=== PATIENT | female | born 1960 | race Caucasian/White ===

== ENCOUNTER → 2016-03-24 | Outpatient (CLI) | payer MEDICARE ==
[~2016-03-24] MED LIST: ALBUTEROL2 PUFFS/17 IN; AMLODIPINE BESY10 M1 PO; ATENOLOL25 MG PO; AZOR 5 MG-40 MG1 TAB PO; CARVEDILOL3.125 M1 PO; CARVEDILOL6.25 M1 PO; CARVEDILOL6.25 MG PO; CLONAZEPAM0.5 M1 PO; COREG6.25 MG PO; FAMOTIDINE 20MG20 MG PO; FLEXERIL10 M1 PO; GABAPENTIN 600600 MG PO; GABAPENTIN800 MG PO; HYDROCODONE1 TABLET PO; LISINOPRIL40 MG PO; LORTAB 10/5001 TAB PO; LORTAB 5/500 501 TAB PO; MAXZIDE 25 MG-31 TA1 PO; MOTRIN600 MG PO; NEXIUM40 MG PO; OXYCODONE HCL10 M1 PO; PHENERGAN25 M3 PO; PREDNISONE 5MG.5 MG PO; ROBAXIN-750750 MG PO; SAVELLA12.5 MG PO; TESSALON PERLE100 MG PO; TRAMADOL 50MG T50 MG PO; VICODIN 5/500 T1 TAB PO; VOLTAREN75 MG PO; XANAX 1MG TABLET1 MG PO; ZANTAC 150150 MG PO; ZITHROMAX TRI-500 MG PO; ZITHROMAX Z PA250 MG PO; ZOFRAN4 MG PO
[2016-03-24 15:06] LABS: AMPHETAMINES/METAMPHETAMINES NEGATIVE ng/mL (<1000)
== END ==
LOC: LAB 14:04
PROVIDERS: Emergency Medicine
DX: Z79.899 Other long term (current) drug therapy (principal)

== ENCOUNTER → 2016-04-21 | Outpatient (CLI) | payer MEDICARE ==
[2016-04-21 14:59] LABS: HEMOGLOBIN 15.7 g/dL (12.2-16.2); LYMPH # 2.2 K/mm3 (0.7-4.5); LYMPH % 21.7 % (10-50.0)
[2016-04-21 15:26] LABS: AMPHETAMINES/METAMPHETAMINES NEGATIVE ng/mL (<1000)
[2016-04-21 15:50] LABS: BUN 26 mg/dL (7-18)
[2016-04-21 16:02] LABS: GFR (ESTIMATED) 58 ML/MIN (59-)
== END ==
LOC: LAB 14:05
PROVIDERS: Emergency Medicine
DX: Z79.899 Other long term (current) drug therapy (principal); I10 Essential (primary) hypertension

== ENCOUNTER → 2016-11-07 | Outpatient (CLI) | payer MEDICARE ==
[2016-11-07 14:32] LABS: AMPHETAMINES/METAMPHETAMINES NEGATIVE ng/mL (<1000)
== END ==
LOC: LAB 14:03
PROVIDERS: Emergency Medicine
DX: Z79.899 Other long term (current) drug therapy (principal)

== ENCOUNTER → 2017-01-06 | Outpatient (CLI) | payer MEDICARE ==
[2017-01-06 13:45] LABS: AMPHETAMINES/METAMPHETAMINES NEGATIVE ng/mL (<1000)
== END ==
LOC: LAB 12:46
PROVIDERS: Emergency Medicine
DX: Z79.899 Other long term (current) drug therapy (principal)

== ENCOUNTER 2017-01-23 20:54 | Observation (INO) | payer MEDICARE, MEDICAID ==
[~2017-01-23] VITALS: Ht 170.2 cm; Wt 90.8 kg
[2017-01-23 20:57] VITALS: BP 203/127
--- NOTE | 2017-01-23 21:13 | Emergency Room Report ---
History of Present Illness Time Seen by [id number] Presenting Problem in Triage Pt arrived:Walked Presenting Problem:PRESENTS WITH CHEST PAIN, N/V, PT STATES SHE IS "JERKING", PT IS ANXIOUS, HYPERVENTILATING Onset of symptoms date/time:01/23/1706/06/1899 or onset unknown for: Treatment Prior to Arrival: [employer] TESTING Provided by: Sepsis Risk Assessment: Temp: 98.3 B/P: 203/127 MAP: 152 Pulse: 97 Resp: 32 Recent fever? N Clinical Suspician of Infection? N Mental Status: 1 - Regular (Normal Baseline) Sepsis Risk:Possible Sepsis Risk Have you (or family members/close friends) recently traveled outside the [place]? N If Yes, where/when: Have you had exposure to infectious disease within the past month? N TB? Other? Specify: Source patient, RN notes reviewed, family, old records Exam Limitations no limitations Comment pt with upper abd pain with nausea and vomiting with progression to ant chest pain with hx of heart disease - she also has jerking and elevated bp- she reports being compliant with meds - Cardiac Chest Pain Chest pain indicative of cardiac No Timing/Duration this evening Severity moderate ALLERGIES Coded Allergies: buprenorphine (From Suboxone) (Intermediate, I-RASH 02/19/15) buspirone (From BuSpar) (Intermediate, I-RASH 02/19/15) cyclobenzaprine (From Flexeril) (Intermediate, I-RASH 02/19/15) naloxone (From Suboxone) (Intermediate, I-RASH 02/19/15) naproxen (From Naprosyn) (Intermediate, I-RASH 02/19/15) pregabalin (From Lyrica) (Intermediate, I-RASH 02/19/15) Home Medications Active Scripts Prednisone (Prednisone 5MG) 5 MG PO DIRECTED #39 TAB Prov: 01/06/16 Reported Medications Alprazolam (Xanax 1MG) 1 MG PO TID #90 OXYCODONE HCL (Oxycodone HCl) 10 MG PO QID #120 Amlodipine Besylate 10 MG PO BID #30 Carvedilol 6.25 MG PO DAILY #60 Gabapentin (Gabapentin 600MG) 300 MG PO Q8 #90 TAB Lisinopril (Lisinopril 40MG) 40 MG PO DAILY #30 History Medical History General CAD? Yes Angina: Yes [place]: Yes Hypertension? Yes Hyperlipidemia? No CHF? Yes DVT? No PE? No COPD? No Asthma? No Anemia? Yes GERD? No Gastric ulcers? No GI Bleed? No Hernia? No Thyroid Problems? No Hypothyroidism? No CVA? Yes Seizures? Yes Diabetes? No Renal Insuffiency? No End Stage Renal Disease? No UTI? No Stones? No GB Disease: No Nephritic Syndrome? No Asplenia? No Hepatitis? No Sickle Cell Disease? No Arthritis? Yes Migraines? No Cataracts? No Glaucoma? No MRSA? No HIV? No TB? No Anxiety? Yes Depression? No Cancer? 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 Respiratory see HPI, denies cough, shortness of breath, denies wheezing Cardiovascular chest pain, denies palpitations, denies syncope, other Gastrointestinal see HPI, abdominal pain, denies diarrhea, nausea, vomiting Genitourinary denies: dysuria, frequency, hesitancy, hematuria. Musculoskeletal see HPI, denies back pain, denies joint pain, denies joint swelling, denies neck pain, other Skin denies rash Psychiatric/Neurological denies headache, denies seizure Physical Exam Vital Signs Vital Signs Date Time Temp Pulse Resp B/P Pulse O2 O2 Flow FiO2 Ox Delivery Rate 01/23 2210 87 20 160/112 97 01/23 2130 89 22 160/129 99 01/23 2057 98.3 97 32 203/127 95 - WBC >12,000 or <4,000 or 10% bands? 2 or more SIRS Criteria Met? B/P:152/102 MAP:152 Creatinine >2.0? UA output<0.5ml/kg/hr for 2 hrs? Platelet count >100,000? Lactate >2.0mmol/1? INR >1.2 or PTT > than 60 sec? Evidence of Organ Dysfunction? Provider documented clinical suspician of infection? N Sepsis Criteria Count: 2 Sepsis Risk: Possible Sepsis Risk General Appearance no apparent distress Eye Exam - bilateral eye PERRL, bilateral eye EOMI Ear, Nose, Throat normal ENT inspection Neck supple Respiratory Status No: respiratory distress. Lung Sounds bilateral: lungs clear. 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 No Results/Orders Laboratory Tests 01/23/17 2100: Sodium 137, Potassium 3.4 L, Chloride 101, Carbon Dioxide 26, BUN 14, Creatinine 0.8, Estimated Creat Clear 97, Estimated GFR (MDRD) 74, Glucose 126 H, Calcium 9.4, Total Bilirubin 0.3, AST 16, ALT 21, Alkaline Phosphatase 109, Creatine Kinase 65, CK-MB (CK-2) Rel Index 0.9, CK and CKMB Interp 0.6, Troponin I < 0.02, Total Protein 8.4 H, Albumin 4.0, Globulin 4.4 H, Albumin/Globulin Ratio 0.9 L, Amylase 60, Lipase 92, WBC 11.9 H, RBC 4.98, Hgb 14.6, Hct 44.2, MCV 88.7, RDW 13.0, Plt Count 321, MPV 7.6, Gran % 79.7, Gran # 9.5 H, Lymphocytes % 14.5, Monocytes % 3.3, Eosinophils % 2.1, Basophils % 0.5, Lymphocytes # 1.7, Monocytes # 0.4, Eosinophils # 0.3, Basophils # 0.1, PUBS MCHC 33.0, MCH 29.3 Current Medication Orders Sig/Edilberto Start time Last Medication Dose Route Stop Time Status Admin Lorazepam 1 MG ONCE ONE 11/03 2300 DC 01/23 IV 01/23 230 2256 Lorazepam 0 .STK-MED ONE 01/23 225 DC .ROUTE Diphenhydramine HCl 25 MG ONCE ONE 01/23 2245 DC 01/23 IV 01/23 2246 223 Diphenhydramine HCl 0 .STK-MED ONE 01/23 2230 DC .ROUTE Famotidine 20 MG ONCE ONE 01/23 221 DC 01/23 IV 01/24 2216 221 Metoclopramide HCl 10 MG ONCE ONE 01/23 2215 DC 01/23 IVP 01/24 2216 221 Ondansetron HCl 4 MG ONCE ONE 01/23 221 DC 01/23 IV 01/24 2216 221 Sodium Chloride 8 ML ONCE ONE 01/23 2215 DC 01/23 IV 01/24 2216 221 Famotidine 0 .STK-MED ONE 01/23 2213 DC IV Metoclopramide HCl 0 .STK-MED ONE 01/23 2213 DC .ROUTE Metoclopramide HCl 0 .STK-MED ONE 01/24 2212 DC .ROUTE Ondansetron HCl 0 .STK-MED ONE 01/24 2212 DC .ROUTE Sodium Chloride 1,000 ML .STK-MED ONE 01/23 2117 DC IV Sodium Chloride 25 ML .STK-MED ONE 01/24 2116 DC IV Promethazine HCl 12.5 MG ONCE ONE 01/23 2115 DC 01/23 IV 01/23 Promethazine HCl 0 .STK-MED ONE 01/23 2115 DC .ROUTE Sodium Chloride 10 ML PRN PRN 01/23 2115 AC IV 01/24 2109 Sodium Chloride 1,000 ML .Q4H 01/23 2115 AC 01/23 IV 01/24 Sodium Chloride 10 ML PRN PRN 01/23 2115 AC IV 01/24 2110 Sodium Chloride 25 ML ONCE ONE 01/23 2115 DC 01/23 IV 01/23 Orders Procedure Date/time Status DIET-NOTHING BY MOUTH 01/24 B Active Decision to admit 01/[address] ABD & PELVIS W/O CONTRAST 01/24 2116 Active ELECTROCARDIOGRAM REQUEST 01/[address] SCAN REQ 01/23 2110 Active IV SALINE LOCK 01/23 2110 Active LIPASE 01/23 2110 Complete COMPLETE METABOLIC PANEL 01/23 2110 Complete CBC WITH AUTO DIFF 01/23 2110 Complete CARDIAC ENZYMES 01/23 2110 Complete AMYLASE 01/23 2110 Complete CM/EKG CM/round boner Rhythm Sinus Tachycardia EKG non-spec. ST/Twave chgs XRAY/CT/US XRAY/CT/US 1 XRAY chest XR interpretation by reviewed by me Xray Results normal/NAD XRAY/CT/US 2 CT abdomen, pelvis CT interpretation by discussed w/radiologist Time results known: 2349 CT Results normal/NAD JAMEL Score for N-Stemi/Angina JAMEL N-STEMI SCORE JAMEL N-STEMI SCORE Response Value Age of patient Less than 65 yrs 0 Number of risk factors for CAD Presence of 3 or more 1 Prior coronary artery stenosis (seen in angiography) Less than 50% 0 ST-Segment deviation on ECG (>1 min) Absent 0 Prior aspirin intake No ASA in the last 7 days 0 Severe anginal chest pain 2 or more episodes/24hr 1 Elevated cardiac markers(CK-MB or troponin) Absent 0 Total 2 Departure Departure Time of Disposition 2318 Disposition Still a Patient Clinical Impression Primary Impression: Chest pain Qualifiers: Chest pain type: precordial pain Qualified Code: R07.2 - Precordial pain Secondary Impressions: Abdominal pain Qualifiers: Abdominal location: epigastric Qualified Code: R10.13 - Epigastric pain Hypertensive emergency Condition STABLE Referrals Steven GREEN,Randall Gutierrez (Family) ED Critical Care Critical Care No at [id number]
[2017-01-23 21:22] LABS: HEMOGLOBIN 14.6 g/dL (12.2-16.2); LYMPH # 1.7 K/mm3 (0.7-4.5); LYMPH % 14.5 % (10-50.0)
[2017-01-23 21:43] LABS: BUN 14 mg/dL (7-18)
--- NOTE | 2017-01-23 21:53 | RADIOLOGY REPORT PS360 ---
CHEST-AP VIEW ONLY HISTORY: cough ORDERING PHYSICIAN: Alysa Harris MD PATIENT AGE: 56 years COMPARISON: 10/01/2014 FINDINGS: The cardiomediastinal silhouette and pulmonary vascularity are within normal limits. The lungs are clear without infiltrates, suspicious nodules, or pleural effusions. No acute bony abnormalities. Calcified granuloma right lower lobe IMPRESSION: No change with no acute finding
--- OUTSIDE RECORDS SUMMARY | 2017-01-23 22:37 | External Medical Summary Rpt | CCD ---
Author Author , TINA WILDER Address Unknown Phone [email or web address] Care Team Providers Care Outpatient Therapist Name Role Phone MARITZA CHAYA, Unavailable Unavailable MARITZA CHAYA [facility] Unavailable Unavailable AMBULANCE, [facility] POPPY TO, POPPY Unavailable Unavailable TO NICOLE PHIBONNIE Unavailable Unavailable [facility] HAGENSCHUMER MARCELLA, Unavailable Unavailable HAGENSCHUMER MARCELLA [facility] Un[facility] Un[facility], [facility], Unavailable Unavailable [facility] Unavailable Unavailable [facility], [facility] Unavailable [facility] FELIX JR DWI, FELIX Unavailable Unavailable JR DWI [facility], Unavailable Unavailable [facility] Unavailable Unavailable HOSPITALIST, [facility] KHUSHI DEZ, KHUSHI DEZ Unavailable Unavailable TAMIKO MAT, Unavailable Unavailable TAMIKO MAT [facility] Unavailable Unavailable MEDIC, [facility] # Unavailable Unavailable 1, [facility] # 1 [facility], Unavailable Unavailable [facility] DAELINE DEJESUS, Unavailable Unavailable ADELINE TRIPLETT, MARIZA TRIPLETT Unavailable Unavailable Luis Devlin Unavailable Unavailable ANNE MARIE GREEN, Luis Devlin III, MD Purpose Continuity of Care Document - 12-08-2011 through 2016 Problems Code Diagnosis DOS Provider Status E663 OVERWEIGHT 12-08-2016 [facility] [id number] OTHER 12-08-2016 [facility] CHRONIC PHYSICIANS PAIN GROUP I10 ESSENTIAL 12-08-2016 [facility] PRIMARY PHYSICIANS HYPERTENSIO GROUP N 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 [facility] RAL DISC PHYSICIANS D/O GROUP W/RADICULOP ATHY LUMB RGN [id number] OTHER LONG 12-08-2016 [facility] TERM PHYSICIANS CURRENT GROUP DRUG THERAPY 1749 MALIGNANT 05-29-2014 [facility] NEOPLASM OF PHYSICIANS BREAST GROUP UNSPECIFIED SITE 3384 CHRONIC 05-29-2014 [facility] PAIN PHYSICIANS SYNDROME GROUP 05809 DISPLCMT 04-03-2014 [facility] 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 [place] CORONARY ARTERY V4582 POSTSURG 03-07-2014 [facility] TRANSLUMINA L COR ANGPLSTY STS V5842 AFTERCARE 03-07-2014 [facility] SURGERY FOR NEOPLASM V860 ESTROGEN 03-07-2014 [facility] POSITIVE STATUS 24606 UNSPECIFIED 12-22-2013 [facility] ABNORMAL PHYSICIANS MAMMOGRAM GROUP 43937 MAMMOGRAPHI 12-14-2013 [facility] MICROCALCIF IMAGING ASS ICATION 10798 OTHER 11-10-2013 MARITZA ABNORMAL CHAYA FINDING RADIOLOGICA L EXAM BREAST V7612 OTHER 11-02-2013 [facility]CREENING [facility] MAMMOGRAM INC 4111 INTERMEDIAT 10-20-2013 TAMIKO E CORONARY MAT SYNDROME 65207 CHEST PAIN 10-20-2013 [place] UNSPECIFIED HOSPITALIST 4139 OTHER AND 10-18-2013 [facility] PHI UNSPECIFIED ANGINA PECTORIS 93440 PAIN IN 10-18-2013 [facility] REGION 56450 SHORTNESS 10-18-2013 HAGENSCHNEI OF BREATH BRIANA MARCELLA 6929 CONTACT 10-17-2013 [facility] DERMATITIS& MEM [facility]OS[facility] OTHER INC ECZEMA DUE UNSPEC CAUSE 7242 LUMBAGO 10-17-2013 MARIZA TRIPLETT V1254 PERSONAL HX 10-17-2013 [facility] TIA [facility] CI [facility] W/O INC RESIDUAL DEFICITS V148 PERSONAL 10-17-2013 [facility] HISTORY [facility] ALLERGY OTH INC SPEC MEDICINAL AGTS 12494 ESOPHAGEAL 09-01-2013 POPPY TO REFLUX 19079 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 72788 OTHER 08-10-2013 [facility] CHRON[facility] PAIN MEDIC 46194 UNSPECIFIED 08-10-2013 [facility] ARTHROPATHY MEDIC SITE UNSPECIFIED 7244 THORACIC/BIBI 08-10-2013 [facility] MBOSACRAL REGIONAL NEURITIS/RA MEDIC DICULITIS UNSPEC 7262 OTHER 08-10-2013 [facility] AFFECTIONS REGIONAL OF SHOULDER MEDIC REGION NEC 07189 SPASM OF 08-10-2013 [facility] MUSCLE REGIONAL MEDIC 8470 NECK SPRAIN 08-10-2013 [facility] AND STRAIN REGIONAL MEDIC 8472 LUMBAR 08-10-2013 [facility] SPRAIN AND REGIONAL STRAIN MEDIC 7231 CERVICALGIA 07-10-2013 ADELINE KENNEY ANJELICA V1582 PERS HX 07-10-2013 PHI TOBACCO USE [facility] 4659 ACUTE URIS 07-02-2013 KHUSHI DEZ OF UNSPECIFIED SITE 4660 ACUTE 07-02-2013 FELIX JR BRONCHITIS DWI 490 BRONCHITIS 07-02-2013 KHUSHI DEZ NOT SPECIFIED ACUTE OR CHRONIC 496 CHRONIC 07-02-2013 MARITZA [address] CHAYA OBSTRUCTION NEC 7862 COUGH 07-02-2013 MARITZA CHAYA 40561 OTHER CHEST 07-02-2013 KHUSHI DEZ PAIN 67658 OSTEOARTHRO 04-20-2013 POPPY Mazariegos UNSPEC WHETHER GEN/LOC UNSPEC SITE V720 EXAMINATION 02-03-2013 ISI OF EYES [facility] 379.91 379.91 PAIN 09-05-2012 Phi IN OR [facility] 401.9 401.9 09-05-2012 Phi [facility] V58.69 V58.69 OTH 09-05-2012 Phi [facility] ENT USE [facility] Z79.899 OTHER USP (CURRENT) DRUG THERAPY Allergies, Adverse Reactions, Alerts Type Allergy to substance Drug Allergy Adverse Reaction to Substance Substance Reaction Severity LYRICCA Unknown Unknown Cyclobenzaprine Unknown Unknown Duloxetine Unknown Unknown Medications Na ND Rx Da Fi Fi Am Da Di Ph RX Ph St me C No te ll ll ou ys ag ar # ys at rm s nt no ma ic us Or Da si cy ia de te s n re d TR 57 10 10 1 60 15 TO 66 GE Ac AM 66 -0 -1 0. TA 90 HR ti AD 40 3- 8- 00 L 69 IN ve OL 37 20 20 0 CA 9 G 71 13 13 RE SA HC 8 MU L PH EL 50 AR W MA MG CY # TA 1 BL ET EY 00 06 0 No E 90 -1 WA 45 6- Lo SH 37 20 ng 72 13 er SO 0 BIBI Ac TI ti ON ve FU 17 06 0 No L- 47 -1 GL 80 6- Lo O 40 20 ng 1 40 13 er MG 1 Ac OP ti TH ve ST RI PS TE 24 06 0 No TR 20 -1 AC 80 6- Lo AI 92 20 ng NE 06 13 er 4 0. Ac 5% ti ve EY E DR OP S ME 51 06 0 No TO 07 -1 CO 90 6- Lo OL 80 20 ng OL 12 13 er 0 TA Ac RT ti RA ve TE 50 MG TA B Vital Signs 09-05-2012 14:45 Name Value Interpretat Reference Comment ion Range BP 98 mm[Hg] Diastolic BP Systolic 161 mm[Hg] Heart 78 /min Rate/Pulse O2% 98 % Respiratory 20 /min Rate 09-05-2012 13:44 Name Value Interpretat Reference Comment ion Range Body 98.2 [degF] Temperature BP 114 mm[Hg] Diastolic BP Systolic 163 mm[Hg] Heart 74 /min Rate/Pulse O2% 98 % Respiratory 14 /min Rate Results Labs Lab Lab Date Result Refere Interp Status Commen Order Detail nces retati t Range on Urine 9-analyte drugs of abuse screening (01-06-2017 11:00) Comment: Positive urine drug screen samples are stored for 7 days. Comment: Contact the Lab if confirmation of positives is needed. Cocaine = <300 complet 017 NEGATIV ed measure 11:00 E ng/g ment (mass/v olume) Serum = 200 complet or 017 NEGATIV ng/mL ed plasma 11:00 E ng/mL benzodi azepine s measure m Urine = <200 complet barbitu 017 NEGATIV ed rates 11:00 E ng/mL measure ment by screen Urine NEGATIV <1000 complet ampheta 017 E ed mine 11:00 NEGATIV screeni E L ng test ng/mL 11-hydr POSITIV <50 complet oxy 017 E ed delta-9 11:00 POSITIV E L tetrahy ng/mL drocann abinol Comment: This is an UNCONFIRMED result. This result is for medical Comment: purposes and/or treatment only. Phencyc = <25 complet lidine 017 NEGATIV ed measure 11:00 E ng/mL ment (mass/v olume) Opiates = <300 complet 017 POSITIV ed measure 11:00 E ng/mL ment (mass/v olume) Comment: This is an UNCONFIRMED result. This result is for medical Comment: purposes and/or treatment only. Methado 01-06-2 = <300 complet ne 017 NEGATIV ed measure 11:00 E ng/mL ment (mass/v olume) CKMB wCPK (11-22-2012 13:56) CKMB 0.5 0.01 - complet 013 ng/ml 3.60 ed 13:56 RELATIV complet 013 E INDEX ed 13:56 NOT AVAILAB LE ON PATIENT S W/EPHRAIM L CKMB AMI > complet 013 5.0 > ed 13:56 4.0 YOUNG complet 013 ZONE > ed 13:56 5.0 </= 4.0 NON AMI complet 013 </= ed 13:56 5.0 NA MMB complet 013 (ng/ml) ed 13:56 Relativ e Index CKMB NOT 0 - complet INDEX 013 APPL % 4.10 ed 13:56 CK 34 U/L 21 - complet 013 215 ed 13:56 [id number] (11-22-2012 13:56) > 0.06 complet 013 ng/ml ed 13:56 (POSITI VE) 0 - complet 013 0.06 ed 13:56 ng/ml (NEGATI VE) INITIAL complet 013 ed 13:56 TROPONI N? __NO_ 3.1448. MDA. . .M TROPONI 0.00 0.00 - complet N-I 013 ng/ml 0.06 ed 13:56 [id number] (11-22-2012 07:36) > 0.06 complet 013 ng/ml ed 07:36 (POSITI VE) 0 - complet 013 0.06 ed 07:36 ng/ml (NEGATI VE) INITIAL complet 013 ed 07:36 TROPONI N? __NO_ 3.0813. MDA. . .M TROPONI 0.01 0.00 - complet N-I 013 ng/ml 0.06 ed 07:36 [id number] (11-22-2012 07:36) are complet 013 recomme ed 07:36 nded below the age of 75. For patient s 75 years and failure complet 013 also. ed 07:36 For use as a screeni ng test, values less than 131pg/m l causes complet 013 of ed 07:36 increas ed NT-proB CERTIFIED FLIGHT INSTRUCTOR not related to congest jerica heart in complet 013 general ed 07:36 have somewha t higher values than females . There are other failure complet 013 with ed 07:36 increas ing age and advanci ng renal insuffi ciency; males NT-proB complet 013 CERTIFIED FLIGHT INSTRUCTOR can ed 07:36 show substan tial increas es in patient s without heart referen complet 013 ce ed 07:36 ranges that would account for all circums tances. heart complet 013 disease ed 07:36 and for this reason it is difficu lt to assign strict This complet 013 ed 07:36 analyte has conside rable variabi lity in patient s without known NOTIFY YES complet QA 013 ed 07:36 NT-proB 143 0 - 131 Above complet CERTIFIED FLIGHT INSTRUCTOR 013 pg/ml high ed 07:36 normal older, complet 013 a ed 07:36 cutoff of 450pg/n l is recomme nded. * CKMB wCPK (11-22-2012 01:40) RELATIV complet 013 E INDEX ed 01:40 NOT AVAILAB LE ON PATIENT S W/EPHRAIM L CKMB AMI > complet 013 5.0 > ed 01:40 4.0 YOUNG complet 013 ZONE > ed 01:40 5.0 </= 4.0 NON AMI complet 013 </= ed 01:40 5.0 NA MMB complet 013 (ng/ml) ed 01:40 Relativ e Index CKMB NOT 0 - complet INDEX 013 APPL % 4.10 ed 01:40 CK 30 U/L 21 - complet 013 215 ed 01:40 CKMB 0.3 0.01 - complet 013 ng/ml 3.60 ed 01:40 [id number] (11-22-2012 01:40) 02- > 0.06 complet 013 ng/ml ed 01:40 (POSITI VE) 0 - complet 013 0.06 ed 01:40 ng/ml (NEGATI VE) RD BCK P.Hamil complet VRFY: 013 ton/090 ed 01:40 213/021 7/temi INITIAL complet 013 ed 01:40 TROPONI N? __NO_ 3.0217. [facility]. . .M TROPONI 0.01 0.00 - complet N-I 013 ng/ml 0.06 ed 01:40 CKMB wCPK (11-21-2012 20:05) RELATIV complet 013 E INDEX ed 20:05 NOT AVAILAB LE ON PATIENT S W/EPHRAIM L CKMB AMI > complet 013 5.0 > ed 20:05 4.0 YOUNG complet 013 ZONE > ed 20:05 5.0 </= 4.0 NON AMI complet 013 </= ed 20:05 5.0 NA MMB complet 013 (ng/ml) ed 20:05 Relativ e Index CKMB NOT 0 - complet INDEX 013 APPL % 4.10 ed 20:05 CK 29 U/L 21 - complet 013 215 ed 20:05 CKMB 0.9 0.01 - complet 013 ng/ml 3.60 ed 20:05 CKMB wCPK (11-20-2012 22:02) RELATIV complet 013 E INDEX ed 22:02 NOT AVAILAB LE ON PATIENT S W/EPHRAIM L CKMB AMI > complet 013 5.0 > ed 22:02 4.0 YOUNG complet 013 ZONE > ed 22:02 5.0 </= 4.0 NON AMI complet 013 </= ed 22:02 5.0 NA MMB complet 013 (ng/ml) ed 22:02 Relativ e Index CKMB NOT 0 - complet INDEX 013 APPL % 4.10 ed 22:02 CK 26 U/L 21 - complet 013 215 ed 22:02 CKMB 0.4 0.01 - complet 013 ng/ml 3.60 ed 22:02 [id number] (11-20-2012 22:02) > 0.06 complet 013 ng/ml ed 22:02 (POSITI VE) 0 - complet 013 0.06 ed 22:02 ng/ml (NEGATI VE) RD BCK M.Wrigh complet VRFY: 013 ed 22:02 05/2241/ temi INITIAL complet 013 ed 22:02 TROPONI N? __NO_ . [facility]. . .M TROPONI 0.00 0.00 - complet N-I 013 ng/ml 0.06 ed 22:02 CKMB wCPK (11-20-2012 16:00) RELATIV complet 013 E INDEX ed 16:00 NOT AVAILAB LE ON PATIENT S W/EPHRAIM L CKMB AMI > complet 013 5.0 > ed 16:00 4.0 YOUNG complet 013 ZONE > ed 16:00 5.0 </= 4.0 NON AMI complet 013 </= ed 16:00 5.0 NA MMB complet 013 (ng/ml) ed 16:00 Relativ e Index CKMB NOT 0 - complet INDEX 013 APPL % 4.10 ed 16:00 CK 33 U/L 21 - complet 013 215 ed 16:00 CKMB 0.2 0.01 - complet 013 ng/ml 3.60 ed 16:00 [id number] (11-20-2012 16:00) > 0.06 complet 013 ng/ml ed 16:00 (POSITI VE) 0 - complet 013 0.06 ed 16:00 ng/ml (NEGATI VE) RD BCK R complet VRFY: 013 WORKMAN ed 16:00 1636 11/20/12 INITIAL complet 013 ed 16:00 TROPONI N? _YES_ 3.1637. DRArslan. TROPONI 0.00 0.00 - complet N-I 013 ng/ml 0.06 ed 16:00 [id number] (11-20-2012 16:00) POTASSI 3.5 3.50 - complet UM 013 mmol/L 5.10 ed 16:00 SODIUM 136 136 - complet 013 mmol/L 145 ed 16:00 ALT 39 IU/L 12 - 78 complet (SGPT) 013 ed 16:00 AST 21 IU/L 15 - 37 complet (SGOT) 013 ed 16:00 TOTAL 0.3 0.20 - complet MARCO A 013 mg/dl 1.0 ed 16:00 CALCIUM 8.9 8.50 - complet 013 mg/dl 10.10 ed 16:00 GFR 60 complet 013 ml/min ed 16:00 AGE 08 52 yrs complet 013 ed 16:00 CREATIN 1.0 0.60 - complet INE 013 mg/dl 1.30 ed 16:00 BUN 15 7 - 18 complet 013 mg/dl ed 16:00 GLUCOSE 93 70 - complet 013 mg/dl 120 ed 16:00 ANION 10 5 - 15 complet GAP 013 mmol/L ed 16:00 TOTAL 30 21 - 32 complet CO2 013 mmol/L ed 16:00 CHLORID 100 98 - complet E 013 mmol/L 107 ed 16:00 *GFR complet 013 only ed 16:00 applies to adults over the age 18. If complet 013 patient ed 16:00 is Maryellen n, multipl y GFR by 1.120. Normal complet 013 Range: ed 16:00 60 Ml/min/ 1.73 sq meters GLOMERU complet 013 LAR ed 16:00 FILTRAT ION RATE INTERPR ETATION A/G 0.9 1.0 - Below complet RATIO 013 ratio 3.90 low ed 16:00 normal GLOBULI 4.0 1.30 - Above complet N 013 g/dl 3.50 high ed 16:00 normal ALBUMIN 3.7 3.40 - complet 013 g/dl 5.0 ed 16:00 TOTAL 7.7 6.40 - complet PROTEIN 013 g/dl 8.20 ed 16:00 ALK 125 50 - complet PHOS 013 IU/L 136 ed 16:00 CKMB wCPK (05-11-2012 04:00) 05-11- RELATIV complet 013 E INDEX ed 04:00 NOT AVAILAB LE ON PATIENT S W/EPHRAIM L CKMB 05-11-2 AMI > complet 013 5.0 > ed 04:00 4.0 --2 YOUNG complet 013 ZONE > ed 04:00 5.0 </= 4.0 05-11-2 NON AMI complet 013 </= ed 04:00 5.0 NA 05-11-2 MMB complet 013 (ng/ml) ed 04:00 Relativ e Index CKMB 19-2 NOT 0 - complet INDEX 013 APPL % 4.10 ed 04:00 CK --2 54 U/L 21 - complet 013 215 ed 04:00 CKMB 05-11-2 0.8 0.01 - complet 013 ng/ml 3.60 ed 04:00 TROPONIN I (05-11-2012 04:00) -19-2 > 0.06 complet 013 ng/ml ed 04:00 (POSITI VE) 05-11-2 0 - complet 013 0.06 ed 04:00 ng/ml (NEGATI VE) --2 INITIAL complet 013 ed 04:00 TROPONI N? __NO_ 3.0510. CAM. . .M TROPONI -19-2 0.00 0.00 - complet N-I 013 ng/ml 0.06 ed 04:00 TROPONIN I (05-10-2012 22:05) TROPONI -18-2 0.01 0.00 - complet N-I 013 ng/ml 0.06 ed 22:05 02-18-2 > 0.06 complet 013 ng/ml ed 22:05 (POSITI VE) -18-2 0 - complet 013 0.06 ed 22:05 ng/ml (NEGATI VE) -18-2 INITIAL complet 013 ed 22:05 TROPONI N? __NO_ 3.2240. CAM. . .M CKMB wCPK (05-10-2012 22:05) 18-2 RELATIV complet 013 E INDEX ed 22:05 NOT AVAILAB LE ON PATIENT S W/EPHRAIM L CKMB 18-2 AMI > complet 013 5.0 > ed 22:05 4.0 02-18-2 YOUNG complet 013 ZONE > ed 22:05 5.0 </= 4.0 02-18-2 NON AMI complet 013 </= ed 22:05 5.0 NA -18-2 MMB complet 013 (ng/ml) ed 22:05 Relativ e Index CKMB 18-2 NOT 0 - complet INDEX 013 APPL % 4.10 ed 22:05 CK -18-2 60 U/L 21 - complet 013 215 ed 22:05 CKMB 18-2 0.8 0.01 - complet 013 ng/ml 3.60 ed 22:05 COMPREHENSIVE METABOLIC PANEL CMP (05-10-2012 16:38) 05-10-2 *GFR complet 013 only ed 16:38 applies to adults over the age 18. 18-2 If complet 013 patient ed 16:38 is Maryellen n, multipl y GFR by 1.120. 18-2 Normal complet 013 Range: ed 16:38 60 Ml/min/ 1.73 sq meters 18-2 GLOMERU complet 013 LAR ed 16:38 FILTRAT ION RATE INTERPR ETATION A/G -18-2 0.9 1.0 - Below complet RATIO 013 ratio 3.90 low ed 16:38 normal GLOBULI -18-2 3.7 1.30 - Above complet N 013 g/dl 3.50 high ed 16:38 normal ALBUMIN -18-2 3.2 3.40 - Below complet 013 g/dl 5.0 low ed 16:38 normal TOTAL -18-2 6.9 6.40 - complet PROTEIN 013 g/dl 8.20 ed 16:38 ALK 02-18-2 118 50 - complet PHOS 013 IU/L 136 ed 16:38 ALT 52 IU/L 30 - 65 complet (SGPT) 013 ed 16:38 AST 05-10- 14 IU/L 15 - 37 Below complet (SGOT) 013 low ed 16:38 normal TOTAL 0.3 0.20 - complet MARCO A 013 mg/dl 1.0 ed 16:38 CALCIUM 05-10-2 8.7 8.50 - complet 013 mg/dl 10.10 ed 16:38 GFR 05-10-2 60 complet 013 ml/min ed 16:38 AGE 2-18- 51 yrs complet 013 ed 16:38 CREATIN 05-10-2 1.0 0.60 - complet INE 013 mg/dl 1.30 ed 16:38 BUN 05-10- 14 7 - 18 complet 013 mg/dl ed 16:38 GLUCOSE 117 70 - complet 013 mg/dl 120 ed 16:38 ANION 10 5 - 15 complet GAP 013 mmol/L ed 16:38 TOTAL 33 21 - 32 Above complet CO2 013 mmol/L high ed 16:38 normal CHLORID 101 98 - complet E 013 mmol/L 107 ed 16:38 POTASSI 3.3 3.50 - Below complet UM 013 mmol/L 5.10 low ed 16:38 normal SODIUM 141 136 - complet 013 mmol/L 145 ed 16:38 TROPONIN I (05-10-2012 16:38) > 0.06 complet 013 ng/ml ed 16:38 (POSITI VE) 0 - complet 013 0.06 ed 16:38 ng/ml (NEGATI VE) RD BCK H.MATIAS complet VRFY: 013 ,1713,0 ed 16:38 05/10/12 ,EBARBO UR INITIAL complet 013 ed 16:38 TROPONI N? _YES_ 3.1713. E[facility]. . .M TROPONI 0.00 0.00 - complet N-I 013 ng/ml 0.06 ed 16:38 CBC W DIFF AUTOMATED (02-18-2013 16:38) Manual 02-18-2 NOT complet Diff 013 INDICAT ed 16:38 ED BA# 02-18-2 0.04 0.00 - complet 013 K/uL 0.20 ed 16:38 EO# 02-18-2 0.57 0.00 - complet 013 K/uL 0.70 ed 16:38 NE# 02-18-2 5.35 2.00 - complet 013 K/uL 6.90 ed 16:38 MO# 02-18-2 0.65 0.00 - complet 013 K/uL 0.90 ed 16:38 LY# 02-18-2 2.34 0.60 - complet 013 K/uL 3.40 ed 16:38 BA% 02-18-2 0.40 % 0.00 - complet 013 2.50 ed 16:38 EO% 02-18-2 6.40 % 0.00 - complet 013 7.00 ed 16:38 NE% 02-18-2 59.8 % 37.0 - complet 013 80.0 ed 16:38 MO% 02-18-2 7.3 % 0.0 - complet 013 12.0 ed 16:38 LY% 02-18-2 26.1 % 10.0 - complet 013 50.0 ed 16:38 PLT 02-18-2 340 142 - complet 013 K/uL 424 ed 16:38 WBC 02-18-2 9.0 4.60 - complet 013 K/uL 10.20 ed 16:38 RDW 02-18-2 14.1 % 11.60 - complet 013 14.80 ed 16:38 MCHC 02-18-2 32.2 31.80 - complet 013 g/dL 35.40 ed 16:38 MCH 02-18-2 28.1 pg 27.0 - complet 013 31.20 ed 16:38 MCV 02-18-2 87.2 fL 80.0 - complet 013 97.0 ed 16:38 HCT 02-18-2 36 % 37.70 - Below complet 013 53.70 low ed 16:38 normal HGB 02-18-2 11.6 12.20 - Below complet 013 g/dL 18.10 low ed 16:38 normal RBC 02-18-2 4.13 4.04 - complet 013 M/uL 6.13 ed 16:38 MYOGLOBIN PLASMA (02-18-2013 16:38) MYOGLOB 02-18-2 48 10 - 92 complet IN 013 ng/ml ed 16:38 CKMB wCPK (05-10-2012 16:38) 02-18-2 MMB complet 013 (ng/ml) ed 16:38 Relativ e Index 02-18-2 RELATIV complet 013 E INDEX ed 16:38 NOT AVAILAB LE ON PATIENT S W/EPHRAIM L CKMB 02-18-2 AMI > complet 013 5.0 > ed 16:38 4.0 02-18-2 YOUNG complet 013 ZONE > ed 16:38 5.0 </= 4.0 02-18-2 NON AMI complet 013 </= ed 16:38 5.0 NA CKMB 02-18-2 NOT 0 - complet INDEX 013 APPL % 4.10 ed 16:38 CK 02-18-2 62 U/L 21 - complet 013 215 ed 16:38 CKMB 02-18-2 1.1 0.01 - complet 013 ng/ml 3.60 ed 16:38 BNP NT pro (12-09-2011 04:37) 09-18-2 older, complet 012 a ed 04:37 cutoff of 450pg/n l is recomme nded. * 09-18-2 are complet 012 recomme ed 04:37 nded below the age of 75. For patient s 75 years and 09-18-2 failure complet 012 also. ed 04:37 For use as a screeni ng test, values less than 131pg/m l 09-18-2 causes complet 012 of ed 04:37 increas ed NT-proB CERTIFIED FLIGHT INSTRUCTOR not related to congest jerica heart -18-2 in complet 012 general ed 04:37 have somewha t higher values than females . There are other 09-18-2 failure complet 012 with ed 04:37 increas ing age and advanci ng renal insuffi ciency; males -18-2 NT-proB complet 012 CERTIFIED FLIGHT INSTRUCTOR can ed 04:37 show substan tial increas es in patient s without heart 09-18-2 referen complet 012 ce ed 04:37 ranges that would account for all circums tances. 09-18-2 heart complet 012 disease ed 04:37 and for this reason it is difficu lt to assign strict 09-18-2 This complet 012 ed 04:37 analyte has conside rable variabi lity in patient s without known NT-proB 81 0 - 131 complet CERTIFIED FLIGHT INSTRUCTOR 012 pg/ml ed 04:37 GRAM STAIN (12-08-2011 10:57) _RARE_G complet 012 RAM_POS ed 10:57 ITIVE_R ODS____ ____ 2.1225. B. _RARE_G complet 012 RAM_POS ed 10:57 ITIVE_C OCCI,_R ARE_GRA M_NEGAT IVE_ROD S___ 2.1225. B. GRAM complet 012 STAIN ed 10:57 _NO_WHI TE_CELL S_SEEN_ ____ 2.1225. B. SOURCE: complet 012 ed 10:57 _LEFT_A NTECUBI TAL____ ____ 2.1225. EHB. Encounters Encounter Start End Date Code Location Performer Type Date [facility] PHI - OTHER 7 7 [facility] PHI - OTHER 7 7 [facility] PHI [facility] OTHER 7 7 [facility] PHI - OTHER 7 7 [facility] PHI [facility] OTHER 7 7 [facility] UNIVERSIT - 4 4 Y [facility] PHI - 4 4 [facility] PHI - 4 4 [facility] PHI - 4 4 [facility] PHI - 4 4 [facility] PHI - 4 4 [facility] PHI - 4 4 [facility] EDI - 4 4 [facility] PHI - 4 4 [facility] - 4 4 [facility] PHI - 4 4 [facility] 4 4 [facility] Emergency ALIREZA Devlin (ER) 3 13:39 3 14:45 [facility] Luis Heath
--- OUTSIDE RECORDS SUMMARY | 2017-01-23 22:37 | External Medical Summary Rpt | CCD ---
Author Author , TINA WILDER Address Unknown Phone [email or web address] Care Team Providers Care Metal Window Frame Maker Name Role Phone MARITZA CHAYA, Unavailable Unavailable MARITZA CHAYA [facility] Unavailable Unavailable AMBULANCE, [facility] POPPY TO, POPPY Unavailable Unavailable TO NICOLE PHIBONNIE Unavailable Unavailable [facility] HAGENSCHUMER MARCELLA, Unavailable Unavailable HAGENSCHUMER MARCELLA [facility] Un[facility] Un[facility], [facility], Unavailable Unavailable [facility] Unavailable Un[facility], [facility], [facility] FELIX JR DWI, FELIX Unavailable Unavailable JR DWI ISI GRE, Unavailable Unavailable ISI GRE MONETA Unavailable Unavailable HOSPITALIST, [facility] HOSPITALIST KHUSHI DEZ, KHUSHI DEZ Unavailable Unavailable TAMIKO MAT, Unavailable Unavailable TAMIKO MAT [facility] Unavailable Unavailable MEDIC, [facility] # Unavailable Unavailable 1, [facility] 1 [facility], Unavailable Unavailable [facility] ADELINE DEJESUS, Unavailable Unavailable ADELINE TRIPLETT, MARIZA TRIPLETT Unavailable Unavailable Luis Devlin Unavailable Unavailable ANNE MARIE GREEN, Luis Devlin III, MD Purpose Continuity of Care Document - 12-08-2011 through 2016 Problems Code Diagnosis DOS Provider Status E663 OVERWEIGHT 12-08-2016 [facility] [id number] OTHER 12-08-2016 [facility] CHRONIC PHYSICIANS PAIN GROUP I10 ESSENTIAL 12-08-2016 [facility] PRIMARY PHYSICIANS HYPERTENSIO GROUP N 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 [facility] RAL DISC PHYSICIANS D/O GROUP W/RADICULOP ATHY LUMB RGN [id number] OTHER LONG 12-08-2016 [facility] TERM PHYSICIANS CURRENT GROUP DRUG THERAPY 1749 MALIGNANT 05-29-2014 [facility] NEOPLASM OF PHYSICIANS BREAST GROUP UNSPECIFIED SITE 3384 CHRONIC 05-29-2014 [facility] PAIN PHYSICIANS SYNDROME GROUP 19340 DISPLCMT 04-03-2014 [facility] 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 4019 UNSPECIFIED 03-09-2014 [facility] ESSENTIAL PHYSICIANS HYPERTENSIO GROUP N 57430 COR 03-09-2014 [facility] ATHEROSLERO PHYSICIANS UNSPEC GROUP TYPE VESSEL DOUGLAS/RAPHAEL T 1748 MALIG 03-07-2014 [facility] OTHER SPEC FOUNDATION SITES FEMALE BREAST 00196 CORONARY 03-07-2014 [facility] DOUGLAS CORONARY ARTERY V4582 POSTSURG 03-07-2014 [facility] TRANSLUMINA L COR ANGPLSTY STS V5842 AFTERCARE 03-07-2014 [facility] [place] SURGERY FOR NEOPLASM V860 ESTROGEN 03-07-2014 [facility] POSITIVE STATUS 05818 UNSPECIFIED 12-22-2013 [facility] ABNORMAL PHYSICIANS MAMMOGRAM GROUP 76876 MAMMOGRAPHI 12-14-2013 [facility] ICATION 37218 OTHER 11-10-2013 MARITZA ABNORMAL CHAYA FINDING RADIOLOGICA L EXAM BREAST V7612 OTHER 11-02-2013 [facility] MAMMOGRAM INC 4111 INTERMEDIAT 10-20-2013 TAMIKO E CORONARY MAT SYNDROME 08742 CHEST PAIN 10-20-2013 [facility] UNSPECIFIED HOSPITALIST 4139 OTHER AND 10-18-2013 BONNIE PHI UNSPECIFIED ANGINA PECTORIS 75027 PAIN IN 10-18-2013 [facility] REGION 36831 SHORTNESS 10-18-2013 HAGENSCHNEI OF BREATH BRIANA MARCELLA 6929 CONTACT 10-17-2013 [facility] OTHER INC ECZEMA DUE UNSPEC CAUSE 7242 LUMBAGO 10-17-2013 MARIZA TRIPLETT V1254 PERSONAL HX 10-17-2013 [facility] W/O INC RESIDUAL DEFICITS V148 PERSONAL 10-17-2013 [facility] ALLERGY OTH INC SPEC MEDICINAL AGTS 66575 ESOPHAGEAL 09-01-2013 POPPY TO REFLUX 03933 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 57931 OTHER 08-10-2013 [facility] PAIN MEDIC 42811 UNSPECIFIED 08-10-2013 [facility] ARTHROPATHY MEDIC SITE UNSPECIFIED 7244 THORACIC/BIBI 08-10-2013 [facility] MBOSACRAL REGIONAL NEURITIS/RA MEDIC DICULITIS UNSPEC 7262 OTHER 08-10-2013 [facility] AFFECTIONS REGIONAL OF SHOULDER MEDIC REGION NEC 90104 SPASM OF 08-10-2013 [facility] MUSCLE REGIONAL MEDIC 8470 NECK SPRAIN 08-10-2013 [facility] AND STRAIN REGIONAL MEDIC 8472 LUMBAR 08-10-2013 [facility] SPRAIN AND REGIONAL STRAIN MEDIC 7231 CERVICALGIA 07-10-2013 ADELINE KENNEY ANJELICA V1582 PERS HX 07-10-2013 PHI TOBACCO USE [facility] 4659 ACUTE URIS 07-02-2013 KHUSHI DEZ OF UNSPECIFIED SITE 4660 ACUTE 07-02-2013 FELIX JR BRONCHITIS DWI 490 BRONCHITIS 07-02-2013 KHUSHI DEZ NOT SPECIFIED ACUTE OR CHRONIC 496 CHRONIC 07-02-[address] CHAYA OBSTRUCTION NEC 7862 COUGH 07-02-2013 MARITZA CHAYA 96681 OTHER CHEST 07-02-2013 KHUSHI DEZ PAIN 86635 OSTEOARTHRO 04-20-2013 POPPY Mazariegso UNSPEC WHETHER GEN/LOC UNSPEC SITE V720 EXAMINATION 02-03-2013 ISI OF EYES GRE AND VISION 379.91 379.91 PAIN 09-05-[address] [facility] 401.9 401.9 09-05-2012 Phi [facility] V58.69 V58.69 OTH 09-05-2012 Phi [facility] ENT USE [facility] Z79.899 OTHER HALF-WAY (CURRENT) DRUG THERAPY Allergies, Adverse Reactions, Alerts [...] 51 06 0 No TO 07 -1 NJ 90 6- Lo OL 80 20 ng [...] 21 - complet 013 215 ed 13:56 [id number] (11-22-2012 13:56) > 0.06 complet 013 ng/ml ed 13:56 (POSITI VE) 0 - complet 013 0.06 ed 13:56 ng/ml (NEGATI VE) INITIAL complet 013 ed 13:56 TROPONI N? __NO_ 3.1448. MDA. . .M TROPONI 0.00 0.00 - complet N-I 013 ng/ml 0.06 ed 13:56 [id number] (11-22-2012 07:36) > 0.06 complet 013 ng/ml ed 07:36 (POSITI VE) 0 - complet 013 0.06 ed 07:36 ng/ml (NEGATI VE) INITIAL complet 013 ed 07:36 TROPONI N? __NO_ 3.0813. MDA. . .M TROPONI 0.01 0.00 - complet N-I 013 ng/ml 0.06 ed 07:36 [id number] (11-22-2012 07:36) are complet 013 recomme ed 07:36 nded below the age of 75. For patient s 75 years and failure complet 013 also. ed 07:36 For use as a screeni ng test, values less than 131pg/m l causes complet 013 of ed 07:36 increas ed NT-proB FINAL INSPECTION SUPERVISOR not related to congest jerica heart in complet 013 general ed 07:36 have somewha t higher values than females . There are other failure complet 013 with ed 07:36 increas ing age and advanci ng renal insuffi ciency; males NT-proB complet 013 FINAL INSPECTION SUPERVISOR can ed 07:36 show substan tial increas [...] NT-proB 143 0 - 131 Above complet FINAL INSPECTION SUPERVISOR 013 pg/ml high ed 07:36 normal older, [...] - complet 013 ng/ml 3.60 ed 01:40 [id number] (11-22-2012 01:40) 02- > 0.06 complet 013 ng/ml ed 01:40 (POSITI VE) 0 - complet 013 0.06 ed 01:40 ng/ml (NEGATI VE) RD BCK P.Hamil complet VRFY: 013 ton/090 ed 01:40 213/021 7/temi INITIAL complet 013 ed 01:40 TROPONI N? __NO_ 3.0217. [facility]. . .M TROPONI 0.01 0.00 - complet [...] - complet 013 ng/ml 3.60 ed 22:02 [id number] (11-20-2012 22:02) > 0.06 complet 013 ng/ml ed 22:02 (POSITI VE) 0 - complet 013 0.06 ed 22:02 ng/ml (NEGATI VE) RD BCK M.Wrigh complet VRFY: 013 ed 22:02 05/2241/ temi INITIAL complet 013 ed 22:02 TROPONI N? __NO_ . [facility]. . .M TROPONI 0.00 0.00 - complet [...] - complet 013 ng/ml 3.60 ed 16:00 [id number] (11-20-2012 16:00) > 0.06 complet 013 ng/ml ed 16:00 (POSITI VE) 0 - complet 013 0.06 ed 16:00 ng/ml (NEGATI VE) RD BCK R complet VRFY: 013 WORKMAN ed 16:00 1636 11/20/12 INITIAL complet 013 ed 16:00 TROPONI N? _YES_ 3.1637. DRArslan. TROPONI 0.00 0.00 - complet N-I 013 ng/ml 0.06 ed 16:00 [id number] (11-20-2012 16:00) POTASSI 3.5 3.50 - complet [...] 012 of ed 04:37 increas ed NT-proB FINAL INSPECTION SUPERVISOR not related to congest jerica heart -18-2 in complet 012 general ed 04:37 have somewha t higher values than females . There are other 09-18-2 failure complet 012 with ed 04:37 increas ing age and advanci ng renal insuffi ciency; males -18-2 NT-proB complet 012 FINAL INSPECTION SUPERVISOR can ed 04:37 show substan tial increas [...] known NT-proB 81 0 - 131 complet FINAL INSPECTION SUPERVISOR 012 pg/ml ed 04:37 GRAM STAIN (12-08-2011 [...] End Date Code Location Performer Type Date [facility] PHI - OTHER 7 7 [facility] PHI - OTHER 7 7 [facility] PHI [facility] OTHER 7 7 [facility] PHI - OTHER 7 7 [facility] PHI [facility] OTHER 7 7 [facility] UNIVERSIT - 4 4 Y [facility] PHI - 4 4 [facility] PHI - 4 4 [facility] PHI - 4 4 [facility] PHI - 4 4 [facility] PHI - 4 4 [facility] PHI - 4 4 [facility] EDI - 4 4 [facility] PHI - 4 4 [facility] - 4 4 [facility] PHI - 4 4 [facility] 4 4 [facility] Emergency ALIREZA Devlin (ER) 3 13:39 3 14:45 [facility] Luis Heath
[2017-01-23 22:39] LABS: GFR (ESTIMATED) 74 ML/MIN (59-)
--- OUTSIDE RECORDS SUMMARY | 2017-01-23 22:39 | External Medical Summary Rpt | CCD ---
Demographics Address [facility] 03/24 [facility] [address] [place] [address] Preferred Language Estonian Marital Status Unknown Anabaptist Affiliation Unknown Race Unknown Ethnic Group Unknown Author Author , TINA WILDER Address Unknown Phone Care Team Providers Care Business Quality Assurance Analyst Name Role Phone MARITZA CHAYA, Unavailable Unavailable MARITZA CHAYA [facility] Unavailable Unavailable AMBULANCE, [facility] AMBULANCE POPPY TO, POPPY Unavailable Unavailable TO BONNIE PHI, NICOLE Unavailable Unavailable PHI HAGENSCHACIDER MARCELLA, Unavailable Unavailable HAGENSCHNEIDER MARCELLA [facility] Unavailable Unavailable INC, [facility], Unavailable Unavailable [facility] Unavailable Unavailable [facility], [facility] Unavailable [facility], [facility] FELIX JR DWI, FELIX Unavailable Unavailable JR DWI ISI BACH, Unavailable Unavailable ISI BACH [facility] Unavailable Unavailable HOSPITALIST, [facility] KHUSHI DEZ, KHUSHI DEZ Unavailable Unavailable TAMIKO MAT, Unavailable Unavailable TAMIKO MAT [facility] Unavailable Unavailable MEDIC, [facility] # Unavailable Unavailable 1, [facility] 1 [facility], Unavailable Unavailable [facility] ADELINE DEJESUS, Unavailable Unavailable ADELINE TRIPLETT, MARIZA TRIPLETT Unavailable Unavailable Purpose Continuity of Care Document - 01-07-2013 through 2016 Problems Code Diagnosis DOS Provider Status E663 OVERWEIGHT 12-08-2016 [facility] [id number] OTHER 12-08-2016 [facility] CHRONIC PHYSICIANS PAIN GROUP I10 ESSENTIAL 12-08-2016 [facility] PRIMARY PHYSICIANS HYPERTENSIO GROUP N 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 [facility] RAL DISC PHYSICIANS D/O GROUP W/RADICULOP ATHY LUMB RGN [id number] OTHER LONG 12-08-2016 [facility] TERM PHYSICIANS CURRENT GROUP DRUG THERAPY 1749 MALIGNANT 05-29-2014 [facility] NEOPLASM OF PHYSICIANS BREAST GROUP UNSPECIFIED SITE 3384 CHRONIC 05-29-2014 [facility] PAIN PHYSICIANS SYNDROME GROUP 96262 DISPLCMT 04-03-2014 [facility] 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 4019 UNSPECIFIED 03-09-2014 [facility] ESSENTIAL PHYSICIANS HYPERTENSIO GROUP N 68942 COR 03-09-2014 [facility] ATHEROSLERO PHYSICIANS UNSPEC GROUP TYPE VESSEL SHAK[place]/RAPHAEL T 1748 MALIG 03-07-2014 [place] [facility] OTHER SPEC FOUNDATION SITES FEMALE BREAST 65292 CORONARY 03-07-2014 [facility] SHAKTOOLIK CORONARY ARTERY V4582 POSTSURG 03-07-2014 [facility] TRANSLUMINA L COR ANGPLSTY STS V5842 AFTERCARE 03-07-2014 [facility] SURGERY FOR NEOPLASM V860 ESTROGEN 03-07-2014 [facility] POSITIVE STATUS 01390 UNSPECIFIED 12-22-2013 [facility] ABNORMAL PHYSICIANS MAMMOGRAM GROUP 96431 MAMMOGRAPHI 12-14-2013 [facility] IMAGING ASS ICATION 82451 OTHER 11-10-2013 MAIRTZA ABNORMAL CHAYA FINDING RADIOLOGICA L EXAM BREAST V7612 OTHER 11-02-2013 [facility] MAMMOGRAM INC 4111 INTERMEDIAT 10-20-2013 TAMIKO E CORONARY MAT SYNDROME 60518 CHEST PAIN 10-20-2013 [facility] UNSPECIFIED HOSPITALIST 4139 OTHER AND 10-18-2013 BONNIE PHI UNSPECIFIED ANGINA PECTORIS 93163 PAIN IN 10-18-2013 [facility] AMBULANCE REGION 50432 SHORTNESS 10-18-2013 HAGENSCHNEI OF BREATH BRIANA MARCELLA 6929 CONTACT 10-17-2013 [facility] OTHER INC ECZEMA DUE UNSPEC CAUSE 7242 LUMBAGO 10-17-2013 MARIZA IOANA V1254 PERSONAL HX 10-17-2013 [facility] W/O INC RESIDUAL DEFICITS V148 PERSONAL 10-17-2013 [facility] ALLERGY OTH INC SPEC MEDICINAL AGTS 62106 ESOPHAGEAL 09-01-2013 POPPY TO REFLUX 68017 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 82513 OTHER 08-10-2013 [facility] PAIN MEDIC 03363 UNSPECIFIED 08-10-2013 [facility] ARTHROPATHY MEDIC SITE UNSPECIFIED 7244 THORACIC/BIBI 08-10-2013 [facility] MBOSACRAL REG[facility]AL NEURITIS/RA MEDIC DICULITIS UNSPEC 7262 OTHER 08-10-2013 [facility] AFFECTIONS REGIONAL OF SHOULDER MEDIC REGION NEC 61542 SPASM OF 08-10-2013 [facility] MUSCLE [facility] MEDIC 8470 NECK SPRAIN 08-10-2013 [facility] STRAIN REGIONAL MEDIC 8472 LUMBAR 08-10-2013 [facility] SPRAIN AND REGIONAL STRAIN MEDIC 7231 CERVICALGIA 07-10-2013 ADELINE KENNEY ANJELICA V1582 PERS HX 07-10-2013 PHI TOBACCO USE [facility] 4659 ACUTE URIS 07-02-2013 KHUSHI DEZ OF UNSPECIFIED SITE 4660 ACUTE 07-02-2013 FELIX JR BRONCHITIS DWI 490 BRONCHITIS 07-02-2013 KHUSHI DEZ NOT SPECIFIED ACUTE OR CHRONIC 496 CHRONIC 07-02-[address] CHAYA OBSTRUCTION NEC 7862 COUGH 07-02-2013 MARITZA CHAYA 38356 OTHER CHEST 07-02-2013 KHUSHI DEZ PAIN 15772 OSTEOARTHRO 04-20-2013 POPPY TO S UNSPEC WHETHER GEN/LOC UNSPEC SITE V720 EXAMINATION 02-03-2013 ISI OF EYES GRE AND VISION Medications Na ND Rx Da Fi Fi [...] MG CY # TA 1 BL ET Encounters Encounter Start End Date Code Location Performer Type Date [facility] PHI - OTHER 7 7 [facility] PHI - OTHER 7 7 [facility] PHI - OTHER 7 7 [facility] PHI [facility] OTHER 7 7 [facility] PHI - OTHER 7 7 [facility] UNIVERSIT - 4 4 [facility] PHI - 4 4 [facility] PHI - 4 4 [facility] PHI - 4 4 [facility] PHI - 4 4 [facility] PHI - 4 4 [facility] PHI - 4 4 [facility] EDI - 4 4 [facility] - 4 4 [facility] 4 4 [facility] PHI - 4 4 [facility] [place] [address] [facility]
--- OUTSIDE RECORDS SUMMARY | 2017-01-23 22:39 | External Medical Summary Rpt | CCD ---
Demographics Address [facility] 03/24 [facility] [address] [place] [address] Preferred Language Nepalese Marital Status Unknown Pentecostalism Affiliation Unknown Race Unknown Ethnic Group Unknown Author Author , TINA WILDER Address Unknown Phone Care Team Providers Care Slurry Control Tender Name Role Phone MARITZA CHAYA, Unavailable Unavailable MARITZA CHAYA [facility] Unavailable Unavailable AMBULANCE, [facility] AMBULANCE POPPY TO, POPPY Unavailable Unavailable TO BONNIE PHI, NICOLE Unavailable Unavailable PHI HAGENSCHACIDER MARCELLA, Unavailable Unavailable HAGENSCHNEIDER MARCELLA [facility] Unavailable Un[facility] INC, [facility], Unavailable Unavailable [facility] Unavailable Unavailable [facility], [facility] Unavailable [facility], [facility] FELIX JR DWI, FELIX Unavailable Unavailable JR DWI ISI BACH, Unavailable Unavailable ISI BACH [facility]ENK[facility]ONES Unavailable Unavailable HOSPITALIST, [facility] HOSPITALIST KHUSHI DEZ, HKUSHI DEZ Unavailable Unavailable TAMIKO MAT, Unavailable Unavailable TAMIKO MAT [facility] Unavailable Unavailable MEDIC, [facility] # Unavailable Unavailable 1, [facility] 1 [facility], Unavailable Unavailable [facility] ADELINE DEJESUS, Unavailable Unavailable ADELINE TRIPLETT, MARIZA TRIPLETT Unavailable Unavailable Purpose Continuity of Care Document - 01-07-2013 through 2016 Problems Code Diagnosis DOS Provider Status E663 OVERWEIGHT 12-08-2016 [facility] [id number] OTHER 12-08-2016 [facility] CHRONIC PHYSICIANS PAIN GROUP I10 ESSENTIAL 12-08-2016 [facility] PRIMARY PHYSICIANS HYPERTENSIO GROUP N 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 [facility] RAL DISC PHYSICIANS D/O GROUP W/RADICULOP ATHY LUMB RGN [id number] OTHER LONG 12-08-2016 [facility] TERM PHYSICIANS CURRENT GROUP DRUG THERAPY 1749 MALIGNANT 05-29-2014 [facility] NEOPLASM OF PHYSICIANS BREAST GROUP UNSPECIFIED SITE 3384 CHRONIC 05-29-2014 [facility] PAIN PHYSICIANS SYNDROME GROUP 69298 DISPLCMT 04-03-2014 [facility] 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 4019 UNSPECIFIED 03-09-2014 [facility] ESSENTIAL PHYSICIANS HYPERTENSIO GROUP N 98648 COR 03-09-2014 [facility] ATHEROSLERO PHYSICIANS UNSPEC GROUP TYPE VESSEL EKUK/RAPHAEL T 1748 MALIG 03-07-2014 [place] [facility] OTHER SPEC FOUNDATION SITES FEMALE BREAST 15807 CORONARY 03-07-2014 [facility] OS[facility] EKUK CORONARY ARTERY V4582 POSTSURG 03-07-2014 [facility] TRANSLUMINA L COR ANGPLSTY STS V5842 AFTERCARE 03-07-2014 [facility] SURGERY FOR NEOPLASM V860 ESTROGEN 03-07-2014 [facility] POSITIVE STATUS 58034 UNSPECIFIED 12-22-2013 [facility] ABNORMAL PHYSICIANS MAMMOGRAM GROUP 36510 MAMMOGRAPHI 12-14-2013 [facility] MEDICAL MICROCALCIF IMAGING ASS ICATION 32307 OTHER 11-10-2013 MARITZA ABNORMAL CHAYA FINDING RADIOLOGICA L EXAM BREAST V7612 OTHER 11-02-2013 [facility] MAMMOGRAM INC 4111 INTERMEDIAT 10-20-2013 TAMIKO E CORONARY MAT SYNDROME 75104 CHEST PAIN 10-20-2013 [facility] UNSPECIFIED HOSPITALIST 4139 OTHER AND 10-18-2013 BONNIE PHI UNSPECIFIED ANGINA PECTORIS 28076 PAIN IN 10-18-2013 [facility] AMBULANCE REGION 67810 SHORTNESS 10-18-2013 HAGENSCHNEI OF BREATH BRIANA MARCELLA 6929 CONTACT 10-17-2013 [facility] DERMAT[facility]IS[facility] OTHER INC ECZEMA DUE UNSPEC CAUSE 7242 LUMBAGO 10-17-2013 MARIZA IOANA V1254 PERSONAL HX 10-17-2013 [facility] W/O INC RESIDUAL DEFICITS V148 PERSONAL 10-17-2013 [facility] ALLERGY OTH INC SPEC MEDICINAL AGTS 57999 ESOPHAGEAL 09-01-2013 POPPY TO REFLUX 31995 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 20623 OTHER 08-10-2013 [facility] PAIN MEDIC 44342 UNSPECIFIED 08-10-2013 [facility] ARTHROPATHY MEDIC SITE UNSPECIFIED 7244 THORACIC/BIBI 08-10-2013 [facility] MBOSACRAL [facility]AL NEURITIS/RA MEDIC DICULITIS UNSPEC 7262 OTHER 08-10-2013 [facility] AFFECTIONS REGIONAL OF SHOULDER MEDIC REGION NEC 61093 SPASM OF 08-10-2013 [facility]CLE [facility] MEDIC 8470 NECK SPRAIN 08-10-2013 [facility] AND STRAIN REGIONAL MEDIC 8472 LUMBAR 08-10-2013 [facility] SPRAIN AND REGIONAL STRAIN MEDIC 7231 CERVICALGIA 07-10-2013 ADELINE KNENEY ANJELICA V1582 PERS HX 07-10-2013 PHI TOBACCO USE [facility] 4659 ACUTE URIS 07-02-2013 KHUSHI DEZ OF UNSPECIFIED SITE 4660 ACUTE 07-02-2013 FELIX JR BRONCHITIS DWI 490 BRONCHITIS 07-02-2013 KHUSHI DEZ NOT SPECIFIED ACUTE OR CHRONIC 496 CHRONIC 07-02-[address] CHAYA OBSTRUCTION NEC 7862 COUGH 07-02-2013 MARITZA CHAYA 09960 OTHER CHEST 07-02-2013 KHUSHI DEZ PAIN 55405 OSTEOARTHRO 04-20-2013 POPPY TO S UNSPEC WHETHER [...] End Date Code Location Performer Type Date [facility] PHI - OTHER 7 7 [facility] PHI [facility] OTHER 7 7 [facility] PHI [facility] OTHER 7 7 [facility] PHI [facility] OTHER 7 7 [facility] PHI [facility] OTHER 7 7 [facility] UNIVERSIT - 4 4 [facility] PHI - 4 4 [facility] PHI - 4 4 [facility] PHI - 4 4 [facility] PHI - 4 4 [facility] PHI - 4 4 [facility] PHI - 4 4 [facility] EDI - 4 4 [facility] PHI - 4 4 [facility] PHI - 4 4 [facility] [place] [id number] [facility]
--- OUTSIDE RECORDS SUMMARY | 2017-01-23 22:39 | External Medical Summary Rpt | CCD ---
Demographics Preferred Language German Marital Status Unknown Faith Affiliation Unknown Race Unknown Ethnic Group Unknown Author Author , TINA WILDER Address Unknown Phone Immunization Unable to retrieve immunization data due to connection failure with Immunization Registry. Please try again later.
--- OUTSIDE RECORDS SUMMARY | 2017-01-23 22:39 | External Medical Summary Rpt | CCD ---
Demographics Preferred Language Maltese Marital Status Unknown Amish Affiliation Unknown Race Unknown Ethnic Group Unknown Author Author , TINA WILDER Address Unknown Phone Immunization Unable to retrieve immunization data due to connection failure with Immunization Registry. Please try again later.
--- OUTSIDE RECORDS SUMMARY | 2017-01-23 23:01 | External Medical Summary Rpt | CCD ---
Author Author , TINA WILDER Address Unknown Phone [email or web address] Care Team Providers Care Method Consultant Name Role Phone MARITZA CHAYA, Unavailable Unavailable MARITZA CHAYA [facility] Unavailable Unavailable AMBULANCE, [facility] POPPY TO, POPPY Unavailable Unavailable TO NICOLE PHIBONNIE Unavailable Unavailable [facility] HAGENSCHUMER MARCELLA, Unavailable Unavailable HAGENSCHUMER MARCELLA [facility] Unavailable Unavailable [facility], [facility], Unavailable Unavailable [facility] FELIX JR DWI, FELIX Unavailable Unavailable JR DWI ISI GRE, Unavailable Unavailable ISI GRE T[facility] Unavailable Unavailable HOSPITALIST, [facility]ITAL[facility] KHUSHI DEZ, KHUSHI DEZ Unavailable Unavailable TAMIKO MAT, Unavailable Unavailable TAMIKO MAT [facility] Unavailable Unavailable MEDIC, [facility] # Unavailable Unavailable 1, [facility] 1 [facility], Unavailable Unavailable [facility] ADELINE DEJESUS, Unavailable Unavailable ADELINE TRIPLETT, MARIZA TRIPLETT Unavailable Unavailable Luis Devlin Unavailable Unavailable ANNE MARIE GREEN, Luis Devlin III, MD Purpose Continuity of Care Document - 12-08-2011 through 2016 Problems Code Diagnosis DOS Provider Status E663 OVERWEIGHT 12-08-2016 [facility] [id number] OTHER 12-08-2016 [facility] CHRONIC PHYSICIANS PAIN GROUP I10 ESSENTIAL 12-08-2016 [facility] PRIMARY PHYSICIANS HYPERTENSIO GROUP N 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 [facility] RAL DISC PHYSICIANS D/O GROUP W/RADICULOP ATHY LUMB RGN [id number] OTHER LONG 12-08-2016 [facility] TERM PHYSICIANS CURRENT GROUP DRUG THERAPY 1749 MALIGNANT 05-29-2014 [facility] NEOPLASM OF PHYSICIANS BREAST GROUP UNSPECIFIED SITE 3384 CHRONIC 05-29-2014 [facility] PAIN PHYSICIANS SYNDROME GROUP 04365 DISPLCMT 04-03-2014 [facility] 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 4019 UNSPECIFIED 03-09-2014 [facility] ESSENTIAL PHYSICIANS HYPERTENSIO GROUP N 05893 COR 03-09-2014 [facility] ATHEROSLERO PHYSICIANS UNSPEC GROUP TYPE VESSEL [place]ENTAST[place]/RAPHAEL T 1748 MALIG 03-07-2014 [facility] OTHER SPEC FOUNDATION SITES FEMALE BREAST 20279 CORONARY 03-07-2014 [facility] OSIS [place] CORONARY ARTERY V4582 POSTSURG 03-07-2014 [facility] TRANSLUMINA L COR ANGPLSTY STS V5842 AFTERCARE 03-07-2014 [facility] SURGERY FOR NEOPLASM V860 ESTROGEN 03-07-2014 [facility] POSITIVE STATUS 75467 UNSPECIFIED 12-22-2013 [facility] ABNORMAL PHYSICIANS MAMMOGRAM GROUP 17907 MAMMOGRAPHI 12-14-2013 [facility] IC[facility] 40692 OTHER 11-10-2013 MARITZA ABNORMAL CHAYA FINDING RADIOLOGICA L EXAM BREAST V7612 OTHER 11-02-2013 [facility]CREEN[facility] MAMMOGRAM INC 4111 INTERMEDIAT 10-20-2013 TAMIKO E CORONARY MAT SYNDROME 51703 CHEST PAIN 10-20-2013 [facility] UNSPECIFIED HOSPITALIST 4139 OTHER AND 10-18-2013 [facility] UNSPECIFIED ANGINA PECTORIS 46168 PAIN IN 10-18-2013 [facility]ION 79978 SHORTNESS 10-18-2013 HAGENSCHNEI OF BREATH BRIANA MARCELLA 6929 CONTACT 10-17-2013 [facility] DERMATITIS[facility] OTHER INC ECZEMA DUE UNSPEC CAUSE 7242 LUMBAGO 10-17-2013 MARIZA TRIPLETT V1254 PERSONAL HX 10-17-2013 [facility] TIA [facility] CI [facility] W/O INC RESIDUAL DEFICITS V148 PERSONAL 10-17-2013 [facility] HISTORY [facility] ALLERGY OTH INC SPEC MEDICINAL AGTS 79345 ESOPHAGEAL 09-01-2013 POPPY TO REFLUX 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 82194 OTHER 08-10-2013 [facility] CHRONIC [facility]AL PAIN MEDIC 34217 UNSPECIFIED 08-10-2013 [facility] ARTHROPATHY MEDIC SITE UNSPECIFIED 7244 THORACIC/BIBI 08-10-2013 [facility] MBOSACRAL REGIONAL NEURITIS/RA MEDIC DICULITIS UNSPEC 7262 OTHER 08-10-2013 [facility] AFFECTIONS REGIONAL OF SHOULDER MEDIC REGION NEC 80226 SPASM OF 08-10-2013 [facility] MUSCLE REGIONAL MEDIC 8470 NECK SPRAIN 08-10-2013 [facility] AND STRAIN REGIONAL MEDIC 8472 LUMBAR 08-10-2013 [facility] SPRAIN AND REGIONAL STRAIN MEDIC 7231 CERVICALGIA 07-10-2013 ADELINE KENNEY ANJELICA V1582 PERS HX 07-10-2013 [facility] TOBACCO USE 4659 ACUTE URIS 07-02-2013 KHUSHI DEZ OF UNSPECIFIED SITE 4660 ACUTE 07-02-2013 FELIX JR BRONCHITIS DWI 490 BRONCHITIS 07-02-2013 KHUSHI DEZ NOT SPECIFIED ACUTE OR CHRONIC 496 CHRONIC 07-02-[address] CHAYA OBSTRUCTION NEC 7862 COUGH 07-02-2013 MARITZA CHAYA 15040 OTHER CHEST 07-02-2013 KHUSHI DEZ PAIN 44200 OSTEOARTHRO 04-20-2013 POPPY Mazariegos UNSPEC WHETHER GEN/LOC UNSPEC SITE V720 EXAMINATION 02-03-2013 ISI OF EYES GRE AND VISION 379.91 379.91 PAIN 09-05-2012 Phi IN OR [facility] 401.9 401.9 09-05-2012 Phi [facility] V58.69 V58.69 OTH 09-05-2012 Phi [facility] ENT USE [facility] Z79.899 OTHER LONG-TERM (CURRENT) DRUG THERAPY Allergies, Adverse Reactions, Alerts [...] 51 06 0 No TO 07 -1 WA 90 6- Lo OL 80 20 ng [...] Order Detail nces retati t Range on CBC w auto diff (01-23-2017 21:00) Automat = 0.1 0-0.2 complet ed 017 K/MM3 ed blood 21:00 basophi l count (count/ vo Automat = 2.1 % 0.1-12. complet ed 017 0 ed blood 21:00 eosinop hils/10 0 leukocy t Blood = 9.5 1.8-7.8 complet granulo 017 K/mm3 ed cytes 21:00 automat ed count (numb Granulo = 79.7 37.0-80 complet cyte 017 % .0 ed percent 21:00 age Blood = 44.2 37.0-47 complet hematoc 017 % .0 ed rit 21:00 (volume fractio n) Blood = 14.6 12.2-16 complet hemoglo 017 g/dL .2 ed bin 21:00 measure ment (mass/v olum Absolut = 1.7 0.7-4.5 complet e 017 K/mm3 ed lymphoc 21:00 yte count Lymphoc = 14.5 10-50.0 complet yte 017 % ed count, 21:00 blood, automat ed Mean = 29.3 27-31.2 complet corpusc 017 pg ed ular 21:00 hemoglo bin (MCH) determ Automat = 33.0 31.8-35 complet ed 017 g/dl .4 ed erythro 21:00 cyte mean corpusc ular h Darke % = 3.3 % 1.7-9.3 complet 017 ed 21:00 Baso % = 0.5 % 0.1-2.0 complet 017 ed 21:00 Automat = 0.3 0.0-0.4 complet ed 017 K/mm3 ed blood 21:00 eosinop hil count Automat = 88.7 82.2-97 complet ed 017 fl .8 ed erythro 21:00 cyte mean corpusc ular v Absolut = 0.4 0.1-1.0 complet e 017 K/mm3 ed monocyt 21:00 e count Automat = 7.6 7.4-10. complet ed 017 fl 4 ed blood 21:00 platele t mean volume tasha Blood = 321 142-424 complet platele 017 K/mm3 ed t count 21:00 Red = 4.98 4.2-5.4 complet blood 017 M/mm3 ed cell 21:00 count Automat = 13.0 11.5-17 complet ed 017 % .5 ed erythro 21:00 cyte distrib ution width Blood = 11.9 4.8-10. complet leukocy 017 K/MM3 8 ed dante 21:00 count (number /volume ) Amylase ser/plas (01-23-2017 21:00) Amylase = 60 25-115 complet 017 U/L ed ser/nadege 21:00 s Cardiac enzymes (01-23-2017 21:00) Serum = 0.9 0-4.0 complet or 017 U/L ed plasma 21:00 creatin e kinase MB (CK-M Serum = 0.6 0.0-3.6 complet or 017 ng/mL ed plasma 21:00 creatin e kinase MB measu Serum = 65 26-192 complet or 017 U/L ed plasma 21:00 creatin e kinase measure m Serum 2 < 0.02 0.00-0. complet or 017 ng/mL 06 ed plasma 21:00 troponi n i.cardi ac measu Comprehensive metabolic panel (01-23-2017 21:00) Serum 01-23-2 = 0.9 1.1-1.8 complet or 017 ed plasma 21:00 albumin /globul in mass ra Serum = 4.0 3.4-5.0 complet or 017 gm/dL ed plasma 21:00 albumin measure ment (mas Serum = 109 46-116 complet or 017 U/L ed plasma 21:00 alkalin e phospha tase tasha Serum = 0.3 0.2-1.0 complet or 017 mg/dL ed plasma 21:00 total bilirub in measure m Serum = 14 7-18 complet or 017 mg/dL ed plasma 21:00 urea nitroge n measure men Serum = 9.4 8.5-10. complet or 017 mg/dL 1 ed plasma 21:00 calcium measure ment (mas Serum = 101 98-107 complet or 017 mmoL/L ed plasma 21:00 chlorid e measure ment (mo Carbon = 26 21.0-32 complet dioxide 017 mmoL/L .0 ed 21:00 measure ment Serum = 0.8 0.55-1. complet or 017 mg/dL 02 ed plasma 21:00 creatin ine measure ment ( Estimat = 97 50-200 complet ion of 017 ML/MIN ed creatin 21:00 ine renal clearan ce Estimat = 74 59- complet ed 017 ML/MIN ed glomeru 21:00 lar filtrat ion rate (GF Comment: REFERENCE RANGE: >60 ML/MIN/1.73 SQUARE METERS Comment: If this patient is -Polish, then multiply the Comment: result by 1.210. Serum = 4.4 1.3-3.2 complet globuli 017 gm/dL ed n 21:00 measure ment (mass/v olume) Serum 11-03-2 = 126 74-106 complet or 017 mg/dL ed plasma 21:00 glucose measure ment (mas Serum = 3.4 3.5-5.1 complet potassi 017 mmoL/L ed um 21:00 measure ment Serum = 137 136-145 complet sodium 017 mmoL/L ed measure 21:00 ment Serum = 16 15-37 complet or 017 U/L ed plasma 21:00 asparta te aminotr ansfera ALT = 21 12-78 complet (SGPT) 017 U/L ed ser/nadege 21:00 s Protein = 8.4 6.4-8.2 complet total 017 gm/dL ed ser/nadege 21:00 s Lipase measurement (01-23-2017 21:00) Lipase = 92 73-393 complet measure 017 U/L ed ment 21:00 Urine 9-analyte drugs of abuse screening (01-06-2017 11:00) Comment: Positive urine drug screen samples are stored for 7 days. Comment: Contact the Lab if confirmation of positives is needed. Methado = <300 complet ne 017 NEGATIV ed measure 11:00 E ng/mL ment (mass/v olume) Opiates = <300 complet 017 POSITIV ed measure 11:00 E ng/mL ment (mass/v olume) Comment: This is an UNCONFIRMED result. This result is for medical Comment: purposes and/or treatment only. Phencyc = <25 complet lidine 017 NEGATIV ed measure 11:00 E ng/mL ment (mass/v olume) 11-hydr POSITIV <50 complet oxy 017 E ed delta-9 11:00 POSITIV E L tetrahy ng/mL drocann abinol Comment: This is an UNCONFIRMED result. This result is for medical Comment: purposes and/or treatment only. Urine NEGATIV <1000 complet ampheta 017 E ed mine 11:00 NEGATIV screeni E L ng test ng/mL Urine = <200 complet barbitu 017 NEGATIV ed rates 11:00 E ng/mL measure ment by screen Serum = 200 complet or 017 NEGATIV ng/mL ed plasma 11:00 E ng/mL benzodi azepine s measure m Cocaine = <300 complet 017 NEGATIV ed measure 11:00 E ng/g ment (mass/v olume) CKMB wCPK (11-22-2012 13:56) [...] 21 - complet 013 215 ed 13:56 [id number] (2013 13:56) > 0.06 complet 013 ng/ml ed 13:56 (POSITI VE) 0 - complet 013 0.06 ed 13:56 ng/ml (NEGATI VE) INITIAL complet 013 ed 13:56 TROPONI N? __NO_ 3.1448. MDA. . .M TROPONI 0.00 0.00 - complet N-I 013 ng/ml 0.06 ed 13:56 [id number] (11-22-2012 07:36) are complet 013 recomme ed 07:36 nded below the age of 75. For patient s 75 years and failure complet 013 also. ed 07:36 For use as a screeni ng test, values less than 131pg/m l causes complet 013 of ed 07:36 increas ed NT-proB PROPERTY MANAGEMENT BOOKKEEPER not related to congest jerica heart in complet 013 general ed 07:36 have somewha t higher values than females . There are other failure complet 013 with ed 07:36 increas ing age and advanci ng renal insuffi ciency; males NT-proB complet 013 PROPERTY MANAGEMENT BOOKKEEPER can ed 07:36 show substan tial increas [...] NT-proB 143 0 - 131 Above complet PROPERTY MANAGEMENT BOOKKEEPER 013 pg/ml high ed 07:36 normal older, complet 013 a ed 07:36 cutoff of 450pg/n l is recomme nded. * 42941-2 (11-22-2012 07:36) > 0.06 complet 013 ng/ml ed 07:36 (POSITI VE) 0 - complet 013 0.06 ed 07:36 ng/ml (NEGATI VE) INITIAL complet 013 ed 07:36 TROPONI N? __NO_ 3.0813. MDA. . .M TROPONI 0.01 0.00 - complet N-I 013 ng/ml 0.06 ed 07:36 CKMB wCPK (11-22-2012 01:40) RELATIV complet 013 [...] - complet 013 ng/ml 3.60 ed 01:40 [id number] (11-22-2012 01:40) > 0.06 complet 013 ng/ml ed 01:40 (POSITI VE) 0 - complet 013 0.06 ed 01:40 ng/ml (NEGATI VE) RD BCK P.Hamil complet VRFY: 013 ton/090 ed 01:40 213/021 7/temi INITIAL complet 013 ed 01:40 TROPONI N? __NO_ 3.0217. VWC. . .M TROPONI 0.01 0.00 - complet N-I 013 ng/ml 0.06 ed 01:40 CKMB wCK (11-21-2012 20:05) RELATIV complet 013 E INDEX [...] complet 013 ng/ml 3.60 ed 20:05 CKMB wCK (11-20-2012 22:02) RELATIV complet 013 E INDEX [...] - complet 013 ng/ml 3.60 ed 22:02 [id number] (11-20-2012 22:02) 11-20- > 0.06 complet 013 ng/ml ed 22:02 (POSITI VE) 0 - complet 013 0.06 ed 22:02 ng/ml (NEGATI VE) RD BCK M.Wrigh complet VRFY: 013 t/ ed 22:02 05/2241/ temi INITIAL complet 013 ed 22:02 TROPONI N? __NO_ 32. VWC. . .M TROPONI 0.00 0.00 - complet N-I 013 ng/ml 0.06 ed 22:02 [id number] (11-20-2012 16:00) POTASSI 3.5 3.50 - complet [...] complet GAP 013 mmol/L ed 16:00 TOTAL 08-31-2 30 21 - 32 complet CO2 013 [...] 013 IU/L 136 ed 16:00 CKMB wCPK (11-20-2012 16:00) RELATIV complet 013 [...] - complet 013 ng/ml 3.60 ed 16:00 [id number] (11-20-2012 16:00) > 0.06 complet 013 ng/ml ed 16:00 (POSITI VE) 0 - complet 013 0.06 ed 16:00 ng/ml (NEGATI VE) RD BCK R complet VRFY: 013 WORKMAN ed 16:00 1636 11/20/12 INITIAL complet 013 ed 16:00 TROPONI N? _YES_ 3.1637. DRB. TROPONI 0.00 0.00 - complet N-I 013 ng/ml 0.06 ed 16:00 CKMB wCPK (05-11-2012 04:00) RELATIV complet 013 E INDEX ed 04:00 NOT AVAILAB LE ON PATIENT S W/EPHRAIM L CKMB AMI > complet 013 5.0 > ed 04:00 4.0 05-11- YOUNG complet 013 ZONE > ed 04:00 5.0 </= 4.0 05-11-2 NON AMI complet 013 </= ed 04:00 5.0 NA MMB complet 013 (ng/ml) ed 04:00 Relativ e Index CKMB 05-11-2 NOT 0 - complet INDEX 013 APPL % 4.10 ed 04:00 CK 05-11- 54 U/L 21 - complet 013 215 ed 04:00 CKMB 05-11-2 0.8 0.01 - complet 013 ng/ml 3.60 ed 04:00 TROPONIN I (05-11-2012 04:00) > 0.06 complet 013 ng/ml ed 04:00 (POSITI VE) 05-11- 0 - complet 013 0.06 ed 04:00 ng/ml (NEGATI VE) INITIAL complet 013 ed 04:00 TROPONI N? __NO_ 3.0510. CAM. . .M TROPONI 05-11- 0.00 0.00 - complet N-I 013 ng/ml 0.06 ed 04:00 TROPONIN I (05-10-2012 22:05) TROPONI -18-2 0.01 0.00 - complet N-I 013 ng/ml 0.06 ed 22:05 05-10-2 > 0.06 complet 013 ng/ml ed 22:05 (POSITI VE) -18-2 0 - complet 013 0.06 ed 22:05 ng/ml (NEGATI VE) -18-2 INITIAL complet 013 ed 22:05 TROPONI N? __NO_ 3.2240. CAM. . .M CKMB wCPK (05-10-2012 22:05) 18-2 RELATIV complet 013 E INDEX ed 22:05 NOT AVAILAB LE ON PATIENT S W/EPHRAIM L CKMB 05-10-2 AMI > complet 013 5.0 > ed 22:05 4.0 02-18-2 YOUNG complet 013 ZONE > ed 22:05 5.0 </= 4.0 02-18-2 NON AMI complet 013 </= ed 22:05 5.0 NA -18-2 MMB complet 013 (ng/ml) ed 22:05 Relativ e Index CKMB 05-10-2 NOT 0 - complet INDEX 013 APPL % 4.10 ed 22:05 CK -18-2 60 U/L 21 - complet 013 215 ed 22:05 CKMB 18-2 0.8 0.01 - complet 013 ng/ml 3.60 ed 22:05 COMPREHENSIVE METABOLIC PANEL CMP (05-10-2012 16:38) *GFR complet 013 only ed 16:38 applies to adults over the age 18. 02-18-2 If complet 013 patient ed 16:38 is [...] PROTEIN 013 g/dl 8.20 ed 16:38 ALK -18-2 118 50 - complet PHOS 013 IU/L 136 ed 16:38 ALT 02-18-2 52 IU/L 30 - 65 complet (SGPT) 013 ed 16:38 AST -18-2 14 IU/L 15 - 37 Below complet (SGOT) 013 low ed 16:38 normal TOTAL -18-2 0.3 0.20 - complet MARCO A 013 mg/dl 1.0 ed 16:38 CALCIUM -18-2 8.7 8.50 - complet 013 mg/dl 10.10 ed 16:38 GFR -18-2 60 complet 013 ml/min ed 16:38 AGE 02-18-2 51 yrs complet 013 ed 16:38 CREATIN -18-2 1.0 0.60 - complet INE 013 mg/dl 1.30 ed 16:38 BUN -18-2 14 7 - 18 complet 013 mg/dl ed 16:38 GLUCOSE -18-2 117 70 - complet 013 mg/dl 120 ed 16:38 ANION -18-2 10 5 - 15 complet GAP 013 mmol/L ed 16:38 TOTAL 18-2 33 21 - 32 Above complet CO2 013 mmol/L high ed 16:38 normal CHLORID -18-2 101 98 - complet E 013 mmol/L 107 ed 16:38 POTASSI -18-2 3.3 3.50 - Below complet UM 013 mmol/L 5.10 low ed 16:38 normal SODIUM 18-2 141 136 - complet 013 mmol/L 145 ed 16:38 MYOGLOBIN PLASMA (05-10-2012 16:38) MYOGLOB -18-2 48 10 - 92 complet IN 013 ng/ml ed 16:38 CKMB wCPK (05-10-2012 16:38) 0218-2 MMB complet 013 (ng/ml) ed 16:38 Relativ [...] 013 APPL % 4.10 ed 16:38 CK -18-2 62 U/L 21 - complet 013 215 ed 16:38 CKMB 1.1 0.01 - complet 013 ng/ml 3.60 ed 16:38 TROPONIN I (05-10-2012 16:38) > 0.06 complet 013 ng/ml ed 16:38 (POSITI VE) 0 - complet 013 0.06 ed 16:38 ng/ml (NEGATI VE) RD BCK H.MATIAS complet VRFY: 013 ,1713,0 ed 16:38 05/10/12 ,EBARBO UR INITIAL complet 013 ed 16:38 TROPONI N? _YES_ 3.1713. B. . .M TROPONI 0.00 0.00 - complet N-I 013 ng/ml 0.06 ed 16:38 CBC W DIFF AUTOMATED (05-10-2012 16:38) Manual NOT complet Diff 013 INDICAT ed 16:38 ED BA# -18-2 0.04 0.00 - complet 013 K/uL 0.20 ed 16:38 EO# -18-2 0.57 0.00 - complet 013 K/uL 0.70 ed 16:38 NE# 02-18-2 5.35 2.00 - complet 013 K/uL 6.90 ed 16:38 MO# -18-2 0.65 0.00 - complet 013 K/uL 0.90 ed 16:38 LY# -18-2 2.34 0.60 - complet 013 K/uL 3.40 ed 16:38 BA% -18-2 0.40 % 0.00 - complet 013 2.50 ed 16:38 EO% 02-18-2 6.40 % 0.00 - complet 013 7.00 ed 16:38 NE% 02-18-2 59.8 % 37.0 - complet 013 80.0 ed 16:38 MO% -18-2 7.3 % 0.0 - complet 013 12.0 ed 16:38 LY% 02-18-2 26.1 % 10.0 - complet 013 50.0 ed 16:38 PLT -18-2 340 142 - complet 013 K/uL 424 [...] - complet 013 M/uL 6.13 ed 16:38 BNP NT pro (12-09-2011 04:37) [...] 012 of ed 04:37 increas ed NT-proB PROPERTY MANAGEMENT BOOKKEEPER not related to congest jerica heart -18-2 in complet 012 general ed 04:37 have somewha t higher values than females . There are other 09-18-2 failure complet 012 with ed 04:37 increas ing age and advanci ng renal insuffi ciency; males 09-18-2 NT-proB complet 012 PROPERTY MANAGEMENT BOOKKEEPER can ed 04:37 show substan tial increas [...] lity in patient s without known NT-proB 09-18-2 81 0 - 131 complet PROPERTY MANAGEMENT BOOKKEEPER 012 pg/ml ed 04:37 GRAM STAIN (12-08-2011 10:57) _RARE_G complet 012 RAM_POS ed 10:57 ITIVE_R ODS____ ____ 2.1225. B. _RARE_G complet 012 RAM_POS ed 10:57 ITIVE_C OCCI,_R ARE_GRA M_NEGAT IVE_ROD S___ 2.1225. B. GRAM complet 012 STAIN ed 10:57 _NO_WHI TE_CELL S_SEEN_ ____ 2.1225. B. SOURCE: complet 012 ed 10:57 _LEFT_A NTECUBI TAL____ ____ 2.1225. B. Encounters Encounter Start End Date Code Location Performer Type Date [facility] [address] [facility] - OTHER [address] [facility] PH[facility] - OTHER [address] [facility] PHI [facility] OTHER [address] [facility] PHI - OTHER [address] [facility] UNIVERSIT - 4 4 Y [facility] PHI - 4 4 [facility] PHI - 4 4 [facility] PHI - 4 4 [facility] PHI - 4 4 [facility] PHI - 4 4 [facility] PHI - 4 4 [facility] EDI - 4 4 [facility] PHI - 4 4 [facility] [place] [id number] [address] [facility] PHI - 4 4 [facility] [place] [address] 4 [facility] Emergency ALIREZA Devlin (ER) 3 13:39 3 14:45 [facility] Luis Heath
--- OUTSIDE RECORDS SUMMARY | 2017-01-23 23:01 | External Medical Summary Rpt | CCD ---
Author Author , TINA WILDER Address Unknown Phone [email or web address] Care Team Providers Care Beet Worker Name Role Phone MARITZA CHAYA, Unavailable Unavailable MARITZA CHAYA [facility] Un[facility] Un[facility], [facility] POPPY TO, POPPY Unavailable Unavailable TO NICOLE PHIBONNIE Unavailable Unavailable [facility] HAGENSCHUMER MARCELLA, Unavailable Unavailable HAGENSCHUMER MARCELLA [facility] Unavailable Un[facility], [facility], Unavailable Unavailable [facility] Unavailable Unavailable [facility], [facility] Un[facility], [facility] FELIX JR DWI, FELIX Unavailable Unavailable JR DWI ISI GRE, Unavailable Unavailable ISI GRE [facility] Unavailable Unavailable HOSPITALIST, [facility] KHUSHI DEZ, KHUSHI DEZ Unavailable Unavailable TAMIKO MAT, Unavailable Unavailable TAMIKO MAT [facility] Unavailable Unavailable MEDIC, [facility] # Unavailable Unavailable 1, [facility], Unavailable Unavailable [facility] ADELINE DEJESUS, Unavailable Unavailable ADELINE TRIPLETT, MARIZA TRIPLETT Unavailable Unavailable Luis Devlin Unavailable Unavailable ANNE MARIE GREEN, Luis Devlin III, MD Purpose Continuity of Care Document - 12-08-2011 through 2016 Problems Code Diagnosis DOS Provider Status E663 OVERWEIGHT 12-08-2016 [facility] [id number] OTHER 12-08-2016 [facility] CHRONIC PHYSICIANS PAIN GROUP I10 ESSENTIAL 12-08-2016 [facility] PRIMARY PHYSICIANS HYPERTENSIO GROUP N 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 [facility] RAL DISC PHYSICIANS D/O GROUP W/RADICULOP ATHY LUMB RGN [id number] OTHER LONG 12-08-2016 [facility] TERM PHYSICIANS CURRENT GROUP DRUG THERAPY 1749 MALIGNANT 05-29-2014 [facility] NEOPLASM OF PHYSICIANS BREAST GROUP UNSPECIFIED SITE 3384 CHRONIC 05-29-2014 [facility] PAIN PHYSICIANS SYNDROME GROUP 91627 DISPLCMT 04-03-2014 [facility] 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 4019 UNSPECIFIED 03-09-2014 [facility] ESSENTIAL PHYSICIANS HYPERTENSIO GROUP N 31358 COR 03-09-2014 [facility] ATHEROSLERO PHYSICIANS UNSPEC GROUP TYPE VESSEL [place]/RAPHAEL T 1748 MALIG 03-07-2014 [facility] OTHER SPEC FOUNDATION SITES FEMALE BREAST 04097 CORONARY 03-07-2014 [facility] OSIS [place] CORONARY ARTERY V4582 POSTSURG 03-07-2014 [facility] TRANSLUMINA L COR ANGPLSTY STS V5842 AFTERCARE 03-07-2014 [facility] SURGERY FOR NEOPLASM V860 ESTROGEN 03-07-2014 [facility] [place] POSITIVE STATUS 21237 UNSPECIFIED 12-22-2013 [facility] ABNORMAL PHYSICIANS MAMMOGRAM GROUP 31586 MAMMOGRAPHI 12-14-2013 [facility] MICROCALCIF IMAGING ASS ICATION 75414 OTHER 11-10-2013 MARITZA ABNORMAL CHAYA FINDING RADIOLOGICA L EXAM BREAST V7612 OTHER 11-02-2013 [facility]CRE[facility] MAMMOGRAM INC 4111 INTERMEDIAT 10-20-2013 TAMIKO E CORONARY MAT SYNDROME 76810 CHEST PAIN 10-20-2013 [facility] UNSPECIFIED HOSPITALIST 4139 OTHER AND 10-18-2013 BONNIE PHI UNSPECIFIED ANGINA PECTORIS 34864 PAIN IN 10-18-2013 [facility] 03772 SHORTNESS 10-18-2013 HAGENSCHNEI OF BREATH BRIANA MARCELLA 6929 CONTACT 10-17-2013 [facility] OTHER INC ECZEMA DUE UNSPEC CAUSE 7242 LUMBAGO 10-17-2013 MARIZA TRIPLETT V1254 PERSONAL HX 10-17-2013 [facility] T[facility] CI [facility] W/O INC RESIDUAL DEFICITS V148 PERSONAL 10-17-2013 [facility] ALLERGY OTH INC SPEC MEDICINAL AGTS 55996 ESOPHAGEAL 09-01-2013 POPPY TO REFLUX 57412 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 15744 OTHER 08-10-2013 [facility] PAIN MEDIC 90416 UNSPECIFIED 08-10-2013 [facility] ARTHROPATHY MEDIC SITE UNSPECIFIED 7244 THORACIC/BIBI 08-10-2013 [facility] MBOSACRAL REGIONAL NEURITIS/RA MEDIC DICULITIS UNSPEC 7262 OTHER 08-10-2013 [facility] AFFECTIONS REGIONAL OF SHOULDER MEDIC REGION NEC 11579 SPASM OF 08-10-2013 [facility] MUSCLE REGIONAL MEDIC 8470 NECK SPRAIN 08-10-2013 [facility] AND STRAIN REGIONAL MEDIC 8472 LUMBAR 08-10-2013 [facility] SPRAIN AND REGIONAL STRAIN MEDIC 7231 CERVICALGIA 07-10-2013 ADELINE KENNEY ANJELICA V1582 PERS HX 07-10-2013 PHI TOBACCO USE [facility] 4659 ACUTE URIS 07-02-2013 KHUSHI DEZ OF UNSPECIFIED SITE 4660 ACUTE 07-02-2013 FELIX JR BRONCHITIS DWI 490 BRONCHITIS 07-02-2013 KHUSHI DEZ NOT SPECIFIED ACUTE OR CHRONIC 496 CHRONIC 07-02-[address] CHAYA OBSTRUCTION NEC 7862 COUGH 07-02-2013 MARITZA CHAYA 92733 OTHER CHEST 07-02-2013 KHUSHI DEZ PAIN 77672 OSTEOARTHRO 04-20-2013 POPPY Mazariegos UNSPEC WHETHER GEN/LOC UNSPEC SITE V720 EXAMINATION 02-03-2013 ISI OF [facility] 379.91 379.91 PAIN 09-05-2012 [facility] 401.9 401.9 09-05-2012 Phi [facility] V58.69 V58.69 OTH 09-05-2012 Phi [facility] ENT USE [facility] Z79.899 OTHER [facility] (CURRENT) DRUG THERAPY Allergies, Adverse Reactions, Alerts [...] 51 06 0 No TO 07 -1 WI 90 6- Lo OL 80 20 ng [...] erythro 21:00 cyte mean corpusc ular h Mcdowell % = 3.3 % 1.7-9.3 complet 017 [...] SQUARE METERS Comment: If this patient is -Cuban, then multiply the Comment: result by 1.210. [...] 21 - complet 013 215 ed 13:56 [id number] (2013 13:56) > 0.06 complet 013 ng/ml ed 13:56 (POSITI VE) 0 - complet 013 0.06 ed 13:56 ng/ml (NEGATI VE) INITIAL complet 013 ed 13:56 TROPONI N? __NO_ 3.1448. MDA. . .M TROPONI 0.00 0.00 - complet N-I 013 ng/ml 0.06 ed 13:56 [id number] (11-22-2012 07:36) are complet 013 recomme ed 07:36 nded below the age of 75. For patient s 75 years and failure complet 013 also. ed 07:36 For use as a screeni ng test, values less than 131pg/m l causes complet 013 of ed 07:36 increas ed NT-proB HOUSING GRANT ANALYST not related to congest jerica heart in complet 013 general ed 07:36 have somewha t higher values than females . There are other failure complet 013 with ed 07:36 increas ing age and advanci ng renal insuffi ciency; males NT-proB complet 013 HOUSING GRANT ANALYST can ed 07:36 show substan tial increas [...] NT-proB 143 0 - 131 Above complet HOUSING GRANT ANALYST 013 pg/ml high ed 07:36 normal older, complet 013 a ed 07:36 cutoff of 450pg/n l is recomme nded. * [id number] (11-22-2012 07:36) > 0.06 complet 013 ng/ml [...] - complet 013 ng/ml 3.60 ed 01:40 97683-9 (11-22-2012 01:40) > 0.06 complet 013 ng/ml [...] - complet 013 ng/ml 3.60 ed 22:02 [id number] (11-20-2012 22:02) 11-20- > 0.06 complet 013 ng/ml ed 22:02 (POSITI VE) 0 - complet 013 0.06 ed 22:02 ng/ml (NEGATI VE) RD BCK M.Wrigh complet VRFY: 013 t/ ed 22:02 05/2241/ temi INITIAL complet 013 ed 22:02 TROPONI N? __NO_ 32. VWC. . .M TROPONI 0.00 0.00 - complet N-I 013 ng/ml 0.06 ed 22:02 [id number] (11-20-2012 16:00) POTASSI 3.5 3.50 - complet [...] - complet 013 ng/ml 3.60 ed 16:00 [id number] (11-20-2012 16:00) > 0.06 complet 013 ng/ml [...] 012 of ed 04:37 increas ed NT-proB HOUSING GRANT ANALYST not related to congest jerica heart -18-2 in complet 012 general ed 04:37 have somewha t higher values than females . There are other 09-18-2 failure complet 012 with ed 04:37 increas ing age and advanci ng renal insuffi ciency; males 09-18-2 NT-proB complet 012 HOUSING GRANT ANALYST can ed 04:37 show substan tial increas [...] NT-proB 09-18-2 81 0 - 131 complet HOUSING GRANT ANALYST 012 pg/ml ed 04:37 GRAM STAIN (12-08-2011 [...] End Date Code Location Performer Type Date [facility] PHI - OTHER 7 7 [facility] PHI - OTHER 7 7 [facility] PHI [facility] OTHER 7 7 [facility] PHI [facility] OTHER 7 7 [facility] PHI [facility] OTHER 7 7 [facility] UNIVERSIT - 4 4 Y [facility] PHI - 4 4 [facility] PHI - 4 4 [facility] PHI - 4 4 [facility] PHI - 4 4 [facility] PHI - 4 4 [facility] PHI - 4 4 [facility] EDI - 4 4 [facility] PHI - 4 4 [facility] [place] [address] [facility] PHI - 4 4 [facility] [place] [address] [facility] Emergency ALIREZA Devlin (ER) 3 13:39 3 14:45 [facility] Luis Heath
--- OUTSIDE RECORDS SUMMARY | 2017-01-23 23:03 | External Medical Summary Rpt | CCD ---
Demographics Address [facility] 03/24 [facility] [address] [place] [address] Preferred Language Senegalese Marital Status Unknown Hoahaoism Affiliation Unknown Race Unknown Ethnic Group Unknown Author Author , TINA WILDER Address Unknown Phone Care Team Providers Care Diving Coach Name Role Phone MARITZA CHAYA, Unavailable Unavailable MARITZA CHAYA [facility] Unavailable Unavailable AMBULANCE, [facility] AMBULANCE POPPY TO, POPPY Unavailable Unavailable TO BONNIE PHI, NICOLE Unavailable Unavailable [facility] HAGENSCHACIDER MARCELLA, Unavailable Unavailable HAGENSCHNEIDER MARCELLA [facility] Unavailable Unavailable INC, [facility], Unavailable Unavailable [facility] Un[facility] Unavailable [facility], [facility] Unavailable [facility], [facility] FELIX JR DWI, FELIX Unavailable Unavailable JR DWI ISI BACH, Unavailable Unavailable ISI BACH [place] Unavailable Unavailable HOSPITALIST, [place] [facility] KHUSHI DEZ, KHUSHI DEZ Unavailable Unavailable TAMIKO MAT, Unavailable Unavailable TAMIKO MAT [facility] Unavailable Unavailable MEDIC, [facility] # Unavailable Unavailable 1, [facility], [facility] ADELINE DEJESUS, Unavailable Unavailable ADELINE TRIPLETT, MARIZA TRIPLETT Unavailable Unavailable Purpose Continuity of Care Document - 01-07-2013 through 2016 Problems Code Diagnosis DOS Provider Status E663 OVERWEIGHT 12-08-2016 [facility] [id number] OTHER 12-08-2016 [facility] CHRONIC PHYSICIANS PAIN GROUP I10 ESSENTIAL 12-08-2016 [facility] PRIMARY PHYSICIANS HYPERTENSIO GROUP N 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 [facility] RAL DISC PHYSICIANS D/O GROUP W/RADICULOP ATHY LUMB RGN [id number] OTHER LONG 12-08-2016 [facility] TERM PHYSICIANS CURRENT GROUP DRUG THERAPY 1749 MALIGNANT 05-29-2014 [facility] NEOPLASM OF PHYSICIANS BREAST GROUP UNSPECIFIED SITE 3384 CHRONIC 05-29-2014 [facility] PAIN PHYSICIANS SYNDROME GROUP 36906 DISPLCMT 04-03-2014 [facility] 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 4019 UNSPECIFIED 03-09-2014 [facility] ESSENTIAL PHYSICIANS HYPERTENSIO GROUP N 29172 COR 03-09-2014 [facility] ATHEROSLERO PHYSICIANS UNSPEC GROUP TYPE VESSEL GALENA/RAPHAEL T 1748 MALIG 03-07-2014 [facility] OTHER SPEC FOUNDATION SITES FEMALE BREAST 32366 CORONARY 03-07-2014 [facility] OSIS [place] CORONARY ARTERY V4582 POSTSURG 03-07-2014 [facility] TRANSLUMINA L COR ANGPLSTY STS V5842 AFTERCARE 03-07-2014 [facility] SURGERY FOR NEOPLASM V860 ESTROGEN 03-07-2014 [facility] POSITIVE STATUS 62703 UNSPECIFIED 12-22-2013 [facility] ABNORMAL PHYSICIANS MAMMOGRAM GROUP 50982 MAMMOGRAPHI 12-14-2013 [facility] MICROCALCIF IMAGING ASS ICATION 37093 OTHER 11-10-2013 MARITZA ABNORMAL CHAYA FINDING RADIOLOGICA L EXAM BREAST V7612 OTHER 11-02-2013 [facility]CRE[facility] MAMMOGRAM INC 4111 INTERMEDIAT 10-20-2013 TAMIKO E CORONARY MAT SYNDROME 11119 CHEST PAIN 10-20-2013 [facility] UNSPECIFIED HOSPITALIST 4139 OTHER AND 10-18-2013 BONNIE PHI UNSPECIFIED ANGINA PECTORIS 60779 PAIN IN 10-18-2013 [facility] AMBULANCE REGION 14767 SHORTNESS 10-18-2013 HAGENSCHNEI OF BREATH BRIANA MARCELLA 6929 CONTACT 10-17-2013 [facility] OTHER INC ECZEMA DUE UNSPEC CAUSE 7242 LUMBAGO 10-17-2013 MARIZA IOANA V1254 PERSONAL HX 10-17-2013 [facility] TIA [facility] CI [facility] W/O INC RESIDUAL DEFICITS V148 PERSONAL 10-17-2013 [facility] ALLERGY OTH INC SPEC MEDICINAL AGTS 26688 ESOPHAGEAL 09-01-2013 POP[facility] TO REFLUX 53008 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 45511 OTHER 08-10-2013 [facility] PAIN MEDIC 45610 UNSPECIFIED 08-10-2013 [facility] ARTHROPATHY MEDIC SITE UNSPECIFIED 7244 THORACIC/BIBI 08-10-2013 [facility] MBOSACRAL REGIONAL NEURITIS/RA MEDIC DICULITIS UNSPEC 7262 OTHER 08-10-2013 [facility] AFFECTIONS REGIONAL OF SHOULDER MEDIC REGION NEC 76260 SPASM OF 08-10-2013 [facility] MUSCLE REGIONAL MEDIC 8470 NECK SPRAIN 08-10-2013 [facility] AND STRAIN REGIONAL MEDIC 8472 LUMBAR 08-10-2013 [facility] SPRAIN AND REGIONAL STRAIN MEDIC 7231 CERVICALGIA 07-10-2013 ADELINE KENNEY ANJELICA V1582 PERS HX 07-10-2013 PHI TOBACCO USE [facility] 4659 ACUTE URIS 07-02-2013 KHUSHI DEZ OF UNSPECIFIED SITE 4660 ACUTE 07-02-2013 FELIX JR BRONCHITIS DWI 490 BRONCHITIS 07-02-2013 KHUSHI DEZ NOT SPECIFIED ACUTE OR CHRONIC 496 CHRONIC 07-02-[address] [facility] [address] CHAYA OBSTRUCTION NEC 7862 COUGH 07-02-2013 MARITZA CHAYA 30253 OTHER CHEST 07-02-2013 KHUSHI DEZ PAIN 74892 OSTEOARTHRO 04-20-2013 POPPY TO S UNSPEC WHETHER [...] End Date Code Location Performer Type Date [facility] PHI - OTHER 7 7 [facility] PHI - OTHER 7 7 [facility] PHI - OTHER 7 7 [facility] PHI [facility] OTHER 7 7 [facility] PHI [facility] OTHER 7 7 [facility] UNIVERSIT - 4 4 [facility] PHI - 4 4 [facility] PHI - 4 4 [facility] PHI - 4 4 [facility] PHI - 4 4 [facility] PHI - 4 4 [facility] PHI - 4 4 [facility] EDI - 4 4 [facility] PHI - 4 4 [facility] 4 4 [facility] PHI - 4 4 [facility] [place] [address] 4 [facility]
--- OUTSIDE RECORDS SUMMARY | 2017-01-23 23:03 | External Medical Summary Rpt | CCD ---
Demographics Preferred Language German Marital Status Unknown Catholic Affiliation Unknown Race Unknown Ethnic Group Unknown Author Author , TINA WILDER Address Unknown Phone Immunization Unable to retrieve immunization data due to connection failure with Immunization Registry. Please try again later.
--- OUTSIDE RECORDS SUMMARY | 2017-01-23 23:03 | External Medical Summary Rpt | CCD ---
Demographics Preferred Language Urdu Marital Status Unknown Scientology Affiliation Unknown Race Unknown Ethnic Group Unknown Author Author , TINA WILDER Address Unknown Phone Immunization Unable to retrieve immunization data due to connection failure with Immunization Registry. Please try again later.
--- OUTSIDE RECORDS SUMMARY | 2017-01-23 23:03 | External Medical Summary Rpt | CCD ---
Demographics Address [facility] 03/24 [facility] [address] [place] [address] Preferred Language Montenegrin Marital Status Unknown Protestant Affiliation Unknown Race Unknown Ethnic Group Unknown Author Author , TINA WILDER Address Unknown Phone Care Team Providers Care Box Press Operator Name Role Phone MARITZA CHAYA, Unavailable Unavailable MARITZA CHAYA [facility] Unavailable Unavailable AMBULANCE, [facility] AMBULANCE POPPY TO, POPPY Unavailable Unavailable TO BONNIE PHI, NICOLE Unavailable Unavailable [facility] HAGENSCHACIDER MARCELLA, Unavailable Unavailable HAGENSCHNEIDER MARCELLA [facility] Un[facility] INC, [facility], Unavailable Unavailable [facility] Unavailable Unavailable [facility], [facility] Unavailable Unavailable [facility], [facility] FELIX JR DWI, FELIX Unavailable Unavailable JR DWI ISI BACH, Unavailable Unavailable ISI BACH [facility] Unavailable Unavailable HOSPITALIST, [facility] KHUSHI DEZ, KHUSHI DEZ Unavailable Unavailable TAMIKO MAT, Unavailable Unavailable TAMIKO MAT [facility] Unavailable Unavailable MEDIC, [facility] # Unavailable Unavailable 1, [facility], Unavailable Unavailable [facility] ADELINE DEJESUS, Unavailable Unavailable ADELINE TRIPLETT, MARIZA TRIPLETT Unavailable Unavailable Purpose Continuity of Care Document - 01-07-2013 through 2016 Problems Code Diagnosis DOS Provider Status E663 OVERWEIGHT 12-08-2016 [facility] G8929 OTHER 12-08-2016 [facility] CHRONIC PHYSICIANS PAIN GROUP I10 ESSENTIAL 12-08-2016 [facility] PRIMARY PHYSICIANS HYPERTENSIO GROUP N 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 [facility] RAL DISC PHYSICIANS D/O GROUP W/RADICULOP ATHY LUMB RGN P64571 OTHER LONG 12-08-2016 [facility] TERM PHYSICIANS CURRENT GROUP DRUG THERAPY 1749 MALIGNANT 05-29-2014 [facility] NEOPLASM OF PHYSICIANS BREAST GROUP UNSPECIFIED SITE 3384 CHRONIC 05-29-2014 [facility] PAIN PHYSICIANS SYNDROME GROUP 61351 DISPLCMT 04-03-2014 [facility] 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 4019 UNSPECIFIED 03-09-2014 [facility] ESSENTIAL PHYSICIANS HYPERTENSIO GROUP N 43937 COR 03-09-2014 [facility] ATHEROSLERO PHYSICIANS UNSPEC GROUP TYPE VESSEL AMBLER/RAPHAEL T 1748 MALIG 03-07-2014 [place] [facility] OTHER SPEC FOUNDATION SITES FEMALE BREAST 93961 CORONARY 03-07-2014 [facility] OSIS AMBLER CORONARY ARTERY V4582 POSTSURG 03-07-2014 [facility] TRANSLUMINA L COR ANGPLSTY STS V5842 AFTERCARE 03-07-2014 [facility] SURGERY FOR NEOPLASM V860 ESTROGEN 03-07-2014 [facility] POSITIVE STATUS 95857 UNSPECIFIED 12-22-2013 [facility] ABNORMAL PHYSICIANS MAMMOGRAM GROUP 95714 MAMMOGRAPHI 12-14-2013 RAAD Talley MEDICAL MICROCALCIF IMAGING ASS ICATION 75317 OTHER 11-10-2013 MARITZA ABNORMAL CHAYA FINDING RADIOLOGICA L EXAM BREAST V7612 OTHER 11-02-2013 [facility] MAMMOGRAM INC 4111 INTERMEDIAT 10-20-2013 TAMIKO E CORONARY MAT SYNDROME 96566 CHEST PAIN 10-20-2013 [facility] UNSPECIFIED HOSPITALIST 4139 OTHER AND 10-18-2013 BONNIE PHI UNSPECIFIED ANGINA PECTORIS 97919 PAIN IN 10-18-2013 [facility] AMBULANCE REGION 00299 SHORTNESS 10-18-2013 HAGENSCHNEI OF BREATH BRIANA MARCELLA 6929 CONTACT 10-17-2013 [facility] DERMATITIS[facility] OTHER INC ECZEMA DUE UNSPEC CAUSE 7242 LUMBAGO 10-17-2013 MARIZA IOANA V1254 PERSONAL HX 10-17-2013 [facility] TIA [facility] CI [facility] W/O INC RESIDUAL DEFICITS V148 PERSONAL 10-17-2013 [facility] ALLERGY OTH INC SPEC MEDICINAL AGTS 18564 ESOPHAGEAL 09-01-2013 POPPY TO REFLUX 63158 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 46953 OTHER 08-10-2013 [facility] PAIN MEDIC 29512 UNSPECIFIED 08-10-2013 [facility] ARTHROPATHY MEDIC SITE UNSPECIFIED 7244 THORACIC/BIBI 08-10-2013 [facility] MBOSACRAL [facility]AL NEURITIS/RA MEDIC DICULITIS UNSPEC 7262 OTHER 08-10-2013 [facility] AFFECTIONS REGIONAL OF SHOULDER MEDIC REGION NEC 29401 SPASM OF 08-10-2013 [facility] MUSCLE [facility] MEDIC 8470 NECK SPRAIN 08-10-2013 [facility] AND STRAIN REGIONAL MEDIC 8472 LUMBAR 08-10-2013 [facility] SPRAIN AND REGIONAL STRAIN MEDIC 7231 CERVICALGIA 07-10-2013 ADELINE KENNEY ANJELICA V1582 PERS HX 07-10-2013 PHI TOBACCO USE [facility] 4659 ACUTE URIS 07-02-2013 KHUSHI DEZ OF UNSPECIFIED SITE 4660 ACUTE 07-02-2013 FELIX JR BRONCHITIS DWI 490 BRONCHITIS 07-02-2013 KHUSHI DEZ NOT SPECIFIED ACUTE OR CHRONIC 496 CHRONIC 07-02-[address] CHAYA OBSTRUCTION NEC 7862 COUGH 07-02-2013 MARITZA CHAYA 07252 OTHER CHEST 07-02-2013 KHUSHI DEZ PAIN 11928 OSTEOARTHRO 04-20-2013 POPPY TO S UNSPEC WHETHER [...] End Date Code Location Performer Type Date [facility] PHI - OTHER 7 7 [facility] PHI - OTHER 7 7 [facility] PHI - OTHER 7 7 [facility] PHI [facility] OTHER 7 7 [facility] PHI - OTHER 7 7 [facility] UNIVERSIT - 4 4 [facility] PHI - 4 4 [facility] PHI - 4 4 [facility] PHI - 4 4 [facility] PHI - 4 4 [facility] PHI - 4 4 [facility] PHI - 4 4 [facility] EDI - 4 4 [facility] PHI - [address] [facility] 4 4 [facility] PHI - 4 4 [facility] [place] [address] [facility]
[2017-01-24] VITALS (7 sets, daily range): BP systolic 140–180; BP diastolic 61–124
[2017-01-24 05:35] LABS: LYMPH # 2.1 K/mm3 (0.7-4.5); LYMPH % 26.9 % (10-50.0)
[2017-01-24 05:45] LABS: BUN 13 mg/dL (7-18)
[2017-01-24 05:47] LABS: GFR (ESTIMATED) 65 ML/MIN (59-)
--- NOTE | 2017-01-24 05:47 | RADIOLOGY REPORT PS360 ---
CT ABD PELVIS W/O CONTRAST CLINICAL INDICATION: Generalized abdominal pain with nausea and vomiting ABD PAIN N/V ORDERING PHYSICIAN: Alysa Harris MD PATIENT AGE: 56 years COMPARISON: None TECHNIQUE: Axial images obtained with sagittal and coronal reformats. PROCEDURE: Oral Contrast: None IV Contrast: None . FINDINGS: Lower thorax: Small hiatal hernia. Calcified granuloma right lower lobe. ABDOMEN: Liver: No masses or biliary dilatation. Gallbladder: Nondistended. No radio opaque stones. Pancreas: No masses or peripancreatic fluid collections. Spleen: Unremarkable. Adrenals: Unremarkable Kidneys/ureters: No masses. No renal calculi. No hydronephrosis. No perinephric fluid collections. No ureteral dilatation or obvious ureteral calculi. Stomach bowel: Mild amount retained colonic feces. No obstruction Appendix: No evidence of appendicitis. PELVIS: Reproductive: Hysterectomy Bladder: Nondistended. No obvious stones or masses. ABDOMEN & PELVIS: Peritoneum: No abnormal fluid collections. No obvious inflammatory changes. No free air. Lymph nodes: No enlarged lymph nodes apparent. Vasculature: No evidence of abdominal aortic aneurysm. No retroperitoneal hemorrhage evident. Bones: Mild degenerative changes right hip IMPRESSION: 1. No acute intra-abdominal or pelvic findings. 2. Mild amount retained colonic feces. 3. Small hiatal hernia
--- NOTE | 2017-01-24 08:34 | PHARMACY CLINIC NOTE ---
Patient Demographics Patient Demographics Admission date: 01/24/17 Date: 01/24/17 Time: 0834 Allergies Coded Allergies: buprenorphine (From Suboxone) (Intermediate, I-RASH 02/19/15) buspirone (From BuSpar) (Intermediate, I-RASH 02/19/15) cyclobenzaprine (From Flexeril) (Intermediate, I-RASH 02/19/15) naloxone (From Suboxone) (Intermediate, I-RASH 02/19/15) naproxen (From Naprosyn) (Intermediate, I-RASH 02/19/15) pregabalin (From Lyrica) (Intermediate, I-RASH 02/19/15) HEIGHT- FT: 5 IN: 7.00 K.805 VTE General Information Labs: Laboratory Tests 01/24 01/23 0500 2100 Hematology Hgb (12.2 - 16.2 g/dL) 12.0 L 14.6 Hct (37.0 - 47.0 %) 35.6 L 44.2 Plt Count (142 - 424 K/mm3) 217 [id number] Disclaimer The following section includes nursing documentation that has been pulled in for pharmacy review. Patient's VTE score: 1 Patient's VTE Risk: VERY LOW RISK Clinical trial participant? No VTE prophylaxis [id number] VTE prophylaxis ordered? Yes Type of prophylaxis/treatment: EMELIA at 0834
--- NOTE | 2017-01-24 08:51 | Discharge Summary Standard ---
Demographics: Admit date: 01/23/17 Chief complaint: chest pain PRIMARY DIAGNOSIS: CHEST PAIN Allergies: Coded Allergies: buprenorphine (From Suboxone) (Intermediate, I-RASH 02/19/15) buspirone (From BuSpar) (Intermediate, I-RASH 02/19/15) cyclobenzaprine (From Flexeril) (Intermediate, I-RASH 02/19/15) naloxone (From Suboxone) (Intermediate, I-RASH 02/19/15) naproxen (From Naprosyn) (Intermediate, I-RASH 02/19/15) pregabalin (From Lyrica) (Intermediate, I-RASH 02/19/15) History of present illness: History of present illness: this wf with hx of cad - had acute onset of upper abd pain with nausea and vomiting - pt with no melena and she had elevated bp and no relief with home meds- she was seen in the ed with elevated bp and chest pain - pt admitted with chest pain and uncontrolled bp Past medical history: Family HX Family Hx Insignificant Yes Immunization HX DT/Tetanus 1-4 Years Ago Flu RECVINPAST Pneumonia Never Had TB Test in last year Yes Result Negative General CAD? Yes Angina: Yes UT: Yes Hypertension? Yes Hyperlipidemia? No CHF? Yes DVT? No PE? No COPD? No Asthma? No Anemia? Yes GERD? No Gastric ulcers? No GI Bleed? No Hernia? No Thyroid Problems? No Hypothyroidism? No CVA? Yes Seizures? Yes Diabetes? No Renal Insuffiency? No UTI? No Stones? No GB Disease: No Nephritic Syndrome? No Asplenia? No Hepatitis? No Sickle Cell Disease? No Arthritis? Yes Migraines? No Cataracts? No Glaucoma? No MRSA? No HIV? No TB? No Anxiety? Yes Depression? No Cancer? Yes Site: BREAST Past Surgical HX Previous Surgery?Y FUSION IN NECK BREAST CA SX HEART STENTS Current home meds: Reported Medications OXYCODONE HCL (Oxycodone HCl) 10 MG PO QID #120 Amlodipine Besylate 10 MG PO BID #30 Gabapentin (Gabapentin 600MG) 300 MG PO Q8 #90 TAB Lisinopril (Lisinopril 40MG) 40 MG PO DAILY #30 Social Hx: Smoking HX Tobacco Yes Type Cigarettes Packs/day 1 1/2 - 2 PACKS Alcohol Alcohol: No Hx of Drug Use Drug Use? No Patien't marital status is Patient's support system is good Review of systems: Constitutional see HPI, other. No: fever. Eyes No: drainage. Ears, Nose, Mouth, Throat No ear discharge, No epistaxis, No throat pain Respiratory No: cough, shortness of breath, wheezing. Cardiovascular see HPI, chest pain, No palpitations, No syncope Gastrointestinal/Abdominal see HPI, nausea, poor appetite, poor fluid intake, vomiting Genitourinary No: dysuria, frequency, hesitancy, hematuria. Musculoskeletal No: back pain, joint pain, neck pain. Skin No: rash. Neurological No: headache, seizure disorder. Psychiatric No: anxious, depressed. Exam: Lab data for last 24 hours: Laboratory Tests 01/24/17 0500: Sodium 142, Potassium 3.4 L, Chloride 105, Carbon Dioxide 28, BUN 13, Creatinine 0.9, Estimated Creat Clear 100, Estimated GFR (MDRD) 65, Glucose 108 H, Calcium 8.8, Creatine Kinase 42, CK-MB (CK-2) Rel Index 1.2, CK and CKMB Interp < 0.5, Troponin I < 0.02, WBC 7.8, RBC 4.01 L, Hgb 12.0 L, Hct 35.6 L, MCV 88.7, RDW 13.1, Plt Count 217, MPV 7.7, Gran % 66.0, Gran # 5.2, Lymphocytes % 26.9, Monocytes % 5.6, Eosinophils % 1.1, Basophils % 0.4, Lymphocytes # 2.1, Monocytes # 0.4, Eosinophils # 0.1, Basophils # 0.0, PUBS MCHC 33.2, MCH 29.4 01/24/17 0115: Creatine Kinase 52, CK-MB (CK-2) Rel Index 1.0, CK and CKMB Interp 0.5, Troponin I < 0.02 01/23/17 2100: Sodium 137, Potassium 3.4 L, Chloride 101, Carbon Dioxide 26, BUN 14, Creatinine 0.8, Estimated Creat Clear 97, Estimated GFR (MDRD) 74, Glucose 126 H, Calcium 9.4, Total Bilirubin 0.3, AST 16, ALT 21, Alkaline Phosphatase 109, Creatine Kinase 65, CK-MB (CK-2) Rel Index 0.9, CK and CKMB Interp 0.6, Troponin I < 0.02, Total Protein 8.4 H, Albumin 4.0, Globulin 4.4 H, Albumin/Globulin Ratio 0.9 L, Amylase 60, Lipase 92, WBC 11.9 H, RBC 4.98, Hgb 14.6, Hct 44.2, MCV 88.7, RDW 13.0, Plt Count 321, MPV 7.6, Gran % 79.7, Gran # 9.5 H, Lymphocytes % 14.5, Monocytes % 3.3, Eosinophils % 2.1, Basophils % 0.5, Lymphocytes # 1.7, Monocytes # 0.4, Eosinophils # 0.3, Basophils # 0.1, PUBS MCHC 33.0, MCH 29.3 Admission vital signs: 1ST Vital Signs Result Date Time Pulse Ox 95 01/23 2057 B/P 203/127 01/23 2057 Temp 98.3 01/23 2057 Pulse 97 01/23 2057 Resp 32 01/23 2057 O2 Delivery ROOM AIR 01/24 0030 Exam General appearance: alert, awake Eyes: anicteric, PERRLA ENT: dry mucous membranes Neck: no carotid bruit, no JVD Cardiovascular: regular rate & rhythm, murmur Respiratory: clear to auscultation, no respiratory distress ABD: soft, no tenderness, no guarding, tenderness Genitourinary: no hematuria Extremities: moves all Musculoskeletal: equal muscle strength, motor intact Skin: dry Neuro: alert, varnish melter II-XII nml as tested Hospital Course Hospital Course: pt with bp improved and serial enz ok and dec chest and abp pain and will be d/c with close follow up Medications Medications: Discharge meds are as noted. Follow up Follow up in office in: 5 DAYS with: Randall Harris MD Comment: will see in office next week and resume meds and will arrange op card eval at [id number]
== END 2017-01-24 09:35 | disposition home or self-care (01) ==
LOC: ER 20:54 → 2ND 22:54
PROVIDERS: Emergency Medicine
DX: I16.1 Hypertensive emergency (principal); R07.9 Chest pain, unspecified; R10.13 Epigastric pain; F17.210 Nicotine dependence, cigarettes, uncomplicated; I10 Essential (primary) hypertension; Z79.891 Long term (current) use of opiate analgesic; Z79.899 Other long term (current) drug therapy; Z85.3 Personal history of malignant neoplasm of breast; Z95.5 Presence of coronary angioplasty implant and graft; Z86.73 Personal history of transient ischemic attack (TIA), and cerebral infarction without residual deficits; Z88.8 Allergy status to other drugs, medicaments and biological substances
CPT/HCPCS: G0378; J2405

== ENCOUNTER → 2017-02-18 | Outpatient (CLI) | payer MEDICARE, MEDICAID ==
[2017-02-18 16:36] LABS: AMPHETAMINES/METAMPHETAMINES NEGATIVE ng/mL (<1000)
== END ==
LOC: LAB 14:17
PROVIDERS: Emergency Medicine
DX: Z79.899 Other long term (current) drug therapy (principal)